=== PATIENT | male | born 1945 | race Caucasian/White ===

== ENCOUNTER 2016-04-13 19:44 | Observation (INO) | payer MEDICARE ==
[2016-04-13] MEDS ORDERED: ASPIRIN 81 MG CHEW PO STA (20:21)
[2016-04-13] MEDS ORDERED: NITROGLYCERIN OINT 1 INCH/GM PACKET TOPICAL STA (20:21)
[2016-04-13 20:31] LABS: Basophils # (A) 0.1 k/uL (0-0.2); Basophils % (A) 1 %; CHCM 33.4; Eosinophils # (A) 0.1 k/uL (0-0.7); Eosinophils % (A) 1 %; HCT 42.1 % (39.0-53.0); HDW 2.25; HGB 13.8 gm/dL (13.0-17.5); Luc # (Auto) 0.17; Luc % (Auto) 2; Lymphocytes # (A) 1.4 k/uL (1.0-4.8); Lymphocytes % (A) 14 %; MCH 31.6 pg (25.0-35.0); MCHC 32.9 g/dL (31.0-37.0); MCV 96.1 fL (80.0-100.0); Mean Platelet Volume 7.8; Monocytes # (A) 0.6 k/uL (0-1.0); Monocytes % (A) 6 %; Neutrophils # (A) 8.1 k/uL (1.3-7.7); Neutrophils % (A) 77 %; RBC 4.38 m/uL (4.30-5.90); WBC 10.5 k/uL (3.8-10.6); WBC (Perox) 10.41
[2016-04-13 20:39] LABS: INR 1.3 (<1.1); Partial Thromboplastin Time 23.1 sec (22.0-30.0); Prothrombin Time 12.8 sec (9.0-12.0)
[2016-04-13 20:44] LABS: ALT 62 U/L (21-72); AST 41 U/L (17-59); Alkaline Phosphatase 66 U/L (38-126); Anion Gap 14 mmol/L; Blood Urea Nitrogen 20 mg/dL (9-20); Calcium 9.3 mg/dL (8.4-10.2); Carbon Dioxide 27 mmol/L (22-30); Chloride 104 mmol/L (98-107); Glucose 113 mg/dL (74-99); Magnesium 1.4 mg/dL (1.6-2.3); Non-African American GFR(MDRD) >60 (>60 ml/min/1.73 sqM); Potassium 4.2 mmol/L (3.5-5.1); Sodium 145 mmol/L (137-145); Total Protein 6.7 g/dL (6.3-8.2)
[2016-04-13 20:52] LABS: Creatine Kinase 95 U/L (55-170)
--- NOTE | 2016-04-13 20:54 | XR ---
EXAMINATION TYPE: XR chest 2V DATE OF EXAM: 04/13/2016 8:50 PM COMPARISON: 07/24/2015 HISTORY: Chest pain TECHNIQUE: Frontal and lateral views of the chest are obtained. FINDINGS: There is no heart failure nor confluent pneumonic infiltrate. Heart size is normal. There are chest leads. Costophrenic angles are clear. There is spurring in the thoracic spine. IMPRESSION: No active cardiopulmonary disease. No change.
[2016-04-13 21:05] LABS: Creatine Kinase MB 0.8 ng/mL (0.0-2.4); Troponin I <0.012 ng/mL (0.000-0.034)
--- NOTE | 2016-04-13 21:12 | ED ---
General Adult HPI - General Chief complaint: Altered Mental Status Stated complaint: Chest Pain Time Seen by Provider: 04/13/16 20:12 Source: patient Mode of arrival: ambulatory Limitations: altered mental status - History of Present Illness Initial comments: This 70-year-old white male presents with with a complaint of some chest pain. This occurred at approximate 6:30 PM. It is difficult for him to describe the characteristics of it. It is primarily on the left side. He took 3 sublingual nitroglycerin with eventual relief. He denies any shortness of breath. He is felt fairly weak recently. He apparently had a slight headache at one time. His states that he seemed weak with his speaking. There is some question test confusion although he does have also worse dementia. He is a very poor historian most history is obtained per . His been no fevers chills or recent infections. She states that he has been off balance chronically. His last stress test was in July 2015 near heart catheterization in July 2015. He apparently does have areas of blockage but these are too small to be stented. His business analytics analyst is Dr. Matta. No other complaints or modifying factors. - Related Data Home Medications Medication Instructions Recorded Confirmed Cholecalciferol [Vitamin D3] 2,000 unit PO DAILY@169907/30/13 04/13/16 Citalopram Hydrobromide 40 mg PO DAILY@169907/30/13 04/13/16 [Citalopram HBr] Dipyridamole-Aspirin 200-25 mg 1 tab PO BID@0300,169907/30/13 04/13/16 [Aggrenox 25MG -200MG] Donepezil HCl 20 mg PO DAILY@169907/30/13 04/13/16 Isosorbide Mononitrate [Imdur] 30 mg PO DAILY@169907/30/13 04/13/16 Melatonin 3 - 6 mg PO HS 07/30/13 04/13/16 Memantine [Namenda] 10 mg PO BID@0300,169907/30/13 04/13/16 Metoprolol Tartrate [Lopressor] 25 mg PO PC-BID@0300,169907/30/13 04/13/16 Nitroglycerin Sl Tabs [Nitrostat] 0.4 mg SUBLINGUAL Q5M PRN 07/30/13 04/13/16 Tiotropium 18 Mcg/Puff [Spiriva] 2 puff INHALATION RT-BID 07/30/13 04/13/16 clonazePAM [KlonoPIN] 0.5 mg PO DAILY@1700 07/30/13 04/13/16 lamoTRIgine [LaMICtal] 50 mg PO BID 07/30/13 04/13/16 Primidone [Mysoline] 100 mg PO BID 04/07/14 04/13/16 Saxagliptin HCl [Onglyza] 5 mg PO DAILY@17004/07/14 04/13/16 metFORMIN HCL 1,000 mg PO BID 07/16/14 04/13/16 Atorvastatin [Lipitor] 80 mg PO DAILY@03003/11/15 04/13/16 Budesonide-Formot 160-4.5 Mcg 2 puff INHALATION RT-BID 03/11/15 04/13/16 [Symbicort 160-4.5 Mcg Inhaler] Cyanocobalamin [Vitamin B-12] 1,000 mcg PO DAILY@17003/11/15 04/13/16 traMADol HCl [Ultram] 50 mg PO Q6H PRN 03/11/15 04/13/16 Previous Rx's Medication Instructions Recorded EPINEPHrine [Epipen 2-Americo] 0.3 mg IM ONCE PRN #1 ml 04/08/14 Allergies Allergy/AdvReac Type Severity Reaction Status Date / Time acetaminophen [From Tylenol] Allergy Rash/Hives Verified 04/13/16 20:18 lisinopril Allergy Dyspnea Verified 04/13/16 20:18 lorazepam [From Ativan] AdvReac Hallucinati Verified 04/13/16 20:18 ons Review of Systems ROS Statement: Those systems with pertinent positive or pertinent negative responses have been documented in the HPI. ROS Other: All systems not noted in ROS Statement are negative. Past Medical History Past Medical History: COPD, Dementia, Diabetes Mellitus, Hypertension Additional Past Medical History / Comment(s): Other HX: MULTIPLE SCLEROSIS ( which has also affected the pt cognitively), Possible. alzheimers dementia, optic neuritis, sleep apnea, neuropathy, [place] bilaterally History of Any Multi-Drug Resistant Organisms: None Reported Past Surgical History: Cholecystectomy, Heart Catheterization Additional Past Surgical History / Comment(s): cataracts with lens implants bilaterally, left hand Trigger finger release, colonoscopies, Past Anesthesia/Blood Transfusion Reactions: No Reported Reaction Past Psychological History: Anxiety, Depression Additional Psychological History / Comment(s): Pt lives in a home with his and dog. Pt has a quadcane. Pt is unsteady on his feet and has had numerous falls. He has had 3 falls 2016 Pt's assists him with his ADL's. Pt is able to feed himself. Pt is [place] [employer] and has bilateral hearing aides but choses not to wear them. is able to drive. Pt has no outside medical agency coming into home. Smoking Status: Former smoker Past Alcohol Use History: None Reported Additional Past Alcohol Use History / Comment(s): Pt started smoking in 1964 and quit in 2000 Past Drug Use History: None Reported - Past Family History Father Family Medical History: CVA/TIA, Myocardial Infarction ([place]) Additional Family Medical History / Comment(s): Father in his late 70's. Mother Family Medical History: Dementia Additional Family Medical History / Comment(s): Mother alive but in poor health. She also has colitis. General Exam - General Exam Comments Initial Comments: GENERAL: The patient is well nourished and well hydrated. VITAL SIGNS: Heart rate, blood pressure, respiratory rate reviewed as recorded in nurse's notes. EYES: Pupils are round and reactive. Extraocular movements are intact. No conjunctival / lid redness or swelling. ENT: No external evidence of injury, swelling, or ecchymosis. Airway is patent. Throat is clear. NECK: Nontender. No swelling or evidence of injury. No subcutaneous emphysema. Trachea is midline. No thyroid mass. HEART: Regular rate and rhythm. Good peripheral pulses. LUNGS/CHEST: Breath sounds clear and equal bilaterally. No rales, rhonchi, or wheezes. No ecchymosis, subcutaneous emphysema, or tenderness. ABDOMEN: Abdomen soft without tenderness. No palpable masses or organomegaly. No peritoneal signs. No abdominal wall swelling or ecchymosis. EXTREMITIES: No extremity tenderness. Normal muscle tone and function. No thoracolumbar tenderness. NEUROLOGIC: Sensation is grossly intact. Cranial nerve exam reveals face is symmetrical, tongue is midline, speech is clear. SKIN: No abrasions or ecchymosis is noted. No induration or masses noted. PSYCHIATRIC: Alert and oriented. Appropriate behavior and judgment. Limitations: altered mental status Course Vital Signs 04/13/16 04/13/16 04/13/16 19:54 20:20 20:50 Temperature 98.1 F Pulse Rate 82 74 81 Respiratory 18 18 18 Rate Blood Pressure 105/60 146/80 122/64 O2 Sat by Pulse 98 98 96 Oximetry 04/13/16 21:20 Temperature Pulse Rate 78 Respiratory 16 Rate Blood Pressure 118/71 O2 Sat by Pulse 99 Oximetry Medical Decision Making - Medical Decision Making The patient was seen and examined. All diagnostics were reviewed. EKG shows a normal sinus rhythm at a rate of 86. No acute ST-T wave changes are identified. The UT interval is 156, QRS duration is 84, and QTC intervals 469. The patient had a chest x-ray which did not show any acute abnormalities. The computed tomography scan of the brain shows an old infarct as well as some normal pressure hydrocephalus which is unchanged from previous. The CK-MB is slightly elevated and the magnesium is slightly low. Overall, it is felt as though the patient would benefit from admission to the hospital for further Cardiologic workup. They are agreeable to this. He is doing well on recheck. The case is discussed with Dr. Hodge and he is agreeable to admission. - Lab Data Result diagrams: 04/13/16 20:20 04/13/16 20:20 Lab Results 04/13/16 04/13/16 04/13/16 Range/Units 20:20 20:20 20:20 WBC 10.5 (3.8-10.6) k/uL RBC 4.38 (4.30-5.90) m/uL Hgb 13.8 (13.0-17.5) gm/dL Hct 42.1 (39.0-53.0) % MCV 96.1 (80.0-100.0) fL MCH 31.6 (25.0-35.0) pg MCHC 32.9 (31.0-37.0) g/dL RDW 13.0 (11.5-15.5) % Plt Count 223 (150-450) k/uL Neutrophils % 77 % Lymphocytes % 14 % Monocytes % 6 % Eosinophils % 1 % Basophils % 1 % Neutrophils # 8.1 H (1.3-7.7) k/uL Lymphocytes # 1.4 (1.0-4.8) k/uL Monocytes # 0.6 (0-1.0) k/uL Eosinophils # 0.1 (0-0.7) k/uL Basophils # 0.1 (0-0.2) k/uL PT (9.0-12.0) sec INR (<1.1) APTT (22.0-30.0) sec Sodium 145 (137-145) mmol/L Potassium 4.2 (3.5-5.1) mmol/L Chloride 104 (98-107) mmol/L Carbon Dioxide 27 (22-30) mmol/L Anion Gap 14 mmol/L BUN 20 (9-20) mg/dL Creatinine 1.10 (0.66-1.25) mg/dL Est GFR (MDRD) Af Amer >60 (>60 ml/min/1.73 sqM) Est GFR (MDRD) Non-Af >60 (>60 ml/min/1.73 sqM) Glucose 113 H (74-99) mg/dL Calcium 9.3 (8.4-10.2) mg/dL Magnesium 1.4 L (1.6-2.3) mg/dL Total Bilirubin 1.0 (0.2-1.3) mg/dL AST 41 (17-59) U/L ALT 62 (21-72) U/L Alkaline Phosphatase 66 (38-126) U/L Total Creatine Kinase 95 (55-170) U/L CK-MB (CK-2) 0.8 (0.0-2.4) ng/mL CK-MB (CK-2) Rel Index 0.8 Troponin I <0.012 (0.000-0.034) ng/mL Total Protein 6.7 (6.3-8.2) g/dL Albumin 4.3 (3.5-5.0) g/dL 04/13/16 Range/Units 20:20 WBC (3.8-10.6) k/uL RBC (4.30-5.90) m/uL Hgb (13.0-17.5) gm/dL Hct (39.0-53.0) % MCV (80.0-100.0) fL MCH (25.0-35.0) pg MCHC (31.0-37.0) g/dL RDW (11.5-15.5) % Plt Count (150-450) k/uL Neutrophils % % Lymphocytes % % Monocytes % % Eosinophils % % Basophils % % Neutrophils # (1.3-7.7) k/uL Lymphocytes # (1.0-4.8) k/uL Monocytes # (0-1.0) k/uL Eosinophils # (0-0.7) k/uL Basophils # (0-0.2) k/uL PT 12.8 H (9.0-12.0) sec INR 1.3 (<1.1) APTT 23.1 (22.0-30.0) sec Sodium (137-145) mmol/L Potassium (3.5-5.1) mmol/L Chloride (98-107) mmol/L Carbon Dioxide (22-30) mmol/L Anion Gap mmol/L BUN (9-20) mg/dL Creatinine (0.66-1.25) mg/dL Est GFR (MDRD) Af Amer (>60 ml/min/1.73 sqM) Est GFR (MDRD) Non-Af (>60 ml/min/1.73 sqM) Glucose (74-99) mg/dL Calcium (8.4-10.2) mg/dL Magnesium (1.6-2.3) mg/dL Total Bilirubin (0.2-1.3) mg/dL AST (17-59) U/L ALT (21-72) U/L Alkaline Phosphatase (38-126) U/L Total Creatine Kinase (55-170) U/L CK-MB (CK-2) (0.0-2.4) ng/mL CK-MB (CK-2) Rel Index Troponin I (0.000-0.034) ng/mL Total Protein (6.3-8.2) g/dL Albumin (3.5-5.0) g/dL Disposition Clinical Impression: Chest pain, CAD (coronary artery disease), [place] coronary artery, Unstable angina, Dementia, Headache, Hypomagnesemia Disposition: ADMITTED IP TO THIS [facility] Condition: Fair Time of Disposition: 22:02 Decision Date: 04/13/16 Decision Time: 22:02
--- NOTE | 2016-04-13 21:24 | CT ---
EXAMINATION TYPE: CT brain wo con DATE OF EXAM: 04/13/2016 9:06 PM COMPARISON: 03/12/2015 HISTORY: Pt states of chest pain today. Headache CT DLP: 930.7 mGycm Automated exposure control for dose reduction was used. FINDINGS: Ventricles are slightly enlarged. There is cerebral cortical atrophy. There is no mass effect nor mid line shift. There is no sign of intracranial hemorrhage. Calvarium is intact. IMPRESSION: Cerebral atrophy and normal pressure type hydrocephalus. 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 No change compared to old exam. No acute abnormality.
[2016-04-13] MEDS ORDERED: HEPARIN SODIUM,PORCINE 5,000 UNIT/ML 1 ML VIAL IV PRN (22:04)
[2016-04-13] MEDS ORDERED: HEPARIN SODIUM,PORCINE 5,000 UNIT/ML 1 ML VIAL IV ONE (22:04)
[2016-04-13] MEDS ORDERED: traMADol 50 MG TAB PO PRN (22:07)
[2016-04-13] MEDS ORDERED: HEPARIN SODIUM,PORCINE/D5W PMX 25,000 UNIT in DEXTROSE/WATER 1 500ML.BAG IV SCH (22:15)
[2016-04-13 22:45] VITALS: RESP 18
[2016-04-13] MEDS: MAGNESIUM SULFATE-D5W PMX 1 GM in DEXTROSE/WATER 1 100ML.BAG IVPB SCH (23:38)
[2016-04-14] MEDS: MAGNESIUM SULFATE-D5W PMX 1 GM in DEXTROSE/WATER 1 100ML.BAG IVPB SCH (00:40)
[2016-04-14] MEDS: NITROGLYCERIN OINT 1 INCH/GM PACKET TOPICAL SCH ×2 (02:58→04:55)
[2016-04-14] MEDS: metFORMIN 500 MG TAB PO SCH ×2 (03:19→18:11)
[2016-04-14] MEDS: lamoTRIgine 25 MG TAB PO SCH ×2 (03:20→16:12)
[2016-04-14] MEDS: PRIMIDONE 50 MG TAB PO SCH (03:20)
[2016-04-14] MEDS: ATORVASTATIN 80 MG TAB PO SCH (03:20)
[2016-04-14] MEDS: METOPROLOL TARTRATE 25 MG TAB PO SCH ×2 (03:20→18:12)
[2016-04-14 04:07] LABS: Cholesterol 140 mg/dL (<200); HDL Cholesterol 65 mg/dL (40-60); Triglycerides 91 mg/dL (<150)
[2016-04-14 04:36] LABS: Creatine Kinase 106 U/L (55-170)
[2016-04-14 04:49] LABS: Troponin I <0.012 ng/mL (0.000-0.034)
[2016-04-14] MEDS: MELATONIN 3 MG TABLET PO SCH (04:55)
[2016-04-14] MEDS: DIPYRIDAMOLE-ASPIRIN 200-25 MG 1 EACH CPMP.12HR PO SCH ×2 (04:55→18:10)
[2016-04-14] MEDS: MEMANTINE 10 MG TAB PO SCH ×2 (04:55→18:11)
[2016-04-14] MEDS ORDERED: MORPHINE SULFATE 2 MG/ML SYRINGE IVP PRN (07:09)
[2016-04-14] MEDS: NITROGLYCERIN SL TABS 0.4 MG TAB SUBLINGUAL PRN ×2 (07:13→07:19)
[2016-04-14] MEDS ORDERED: MORPHINE SULFATE 2 MG/ML SYRINGE ONE (07:28)
[2016-04-14] MEDS ORDERED: metFORMIN 500 MG TAB PO SCH (07:30)
[2016-04-14] MEDS: TIOTROPIUM 18 MCG/PUFF INHALER INHALATION SCH ×2 (07:55→18:44)
[2016-04-14] MEDS: SYMBICORT 160-4.5 MCG INHALER INHALATION SCH ×2 (07:59→18:44)
--- NOTE | 2016-04-14 08:51 | P.CRDCN ---
History of Present Illness Consult date: 04/14/16 Chief complaint: Chest pain History of present illness: This is a pleasant 70-year-old gentleman who used to see Dr. Dr. Patricia in the past and currently he sees a kitchen food server out of the town with a past medical history significant for mild to moderate nonobstructive CAD, multiple sclerosis, mild cognitive disorder, was brought to the hospital by ambulance with a chest discomfort. The history was taken from his who states that the patient has been experiencing chest discomfort lately and yesterday he took 3 nitroglycerin without any improvement in the symptoms. The EKG showed sinus rhythm without significant ST or T-wave abnormalities. The cardiac enzymes came in to be unremarkable. The patient underwent heart catheterization at [facility] that was last year and I am in the process of obtaining a copy of it. The patient has been pain free since he was admitted to the hospital. Past Medical History Past Medical History: Chest Pain / Angina, COPD, Dementia, Diabetes Mellitus, Hypertension Additional Past Medical History / Comment(s): Other HX: MULTIPLE SCLEROSIS ( which has also affected the pt cognitively), Possible. alzheimers dementia, optic neuritis, sleep apnea, neuropathy, [place] bilaterally History of Any Multi-Drug Resistant Organisms: None Reported Past Surgical History: Cholecystectomy, Heart Catheterization Additional Past Surgical History / Comment(s): cataracts with lens implants bilaterally, left hand Trigger finger release, colonoscopies, tonsillectomy, stress tests Past Anesthesia/Blood Transfusion Reactions: No Reported Reaction Past Psychological History: Anxiety, Depression Additional Psychological History / Comment(s): Pt lives in a home with his and dog. Pt is unsteady on his feet and has had numerous falls. He has had 3 falls 2016 Pt's assists him with his ADL's. Pt is able to feed himself. Pt is [place] and has bilateral hearing aides but choses not to wear them. is able to drive. Pt has no outside medical agency coming into home. Smoking Status: Former smoker Past Alcohol Use History: None Reported Additional Past Alcohol Use History / Comment(s): Pt started smoking in 1964 and quit in 2000 Past Drug Use History: None Reported - Past Family History Father Family Medical History: CVA/TIA, Myocardial Infarction ([place]) Additional Family Medical History / Comment(s): Father in his late 70's. Mother Family Medical History: Dementia Additional Family Medical History / Comment(s): Mother alive but in poor health. She also has colitis. Medications and Allergies Home Medications Medication Instructions Recorded Confirmed Type Cholecalciferol [Vitamin D3] 2,000 unit PO DAILY@169907/30/13 04/13/16 History Citalopram Hydrobromide 40 mg PO DAILY@169907/30/13 04/13/16 History [Citalopram HBr] Dipyridamole-Aspirin 200-25 mg 1 tab PO BID@0300,169907/30/13 04/13/16 History [Aggrenox 25MG -200MG] Donepezil HCl 20 mg PO DAILY@169907/30/13 04/13/16 History Isosorbide Mononitrate [Imdur] 30 mg PO DAILY@169907/30/13 04/13/16 History Melatonin 3 - 6 mg PO HS 07/30/13 04/13/16 History Memantine [Namenda] 10 mg PO BID@030,169907/30/13 04/13/16 History Metoprolol Tartrate [Lopressor] 25 mg PO PC-BID@030,169907/30/13 04/13/16 History Nitroglycerin Sl Tabs [Nitrostat] 0.4 mg SUBLINGUAL Q5M PRN 07/30/13 04/13/16 History Tiotropium 18 Mcg/Puff [Spiriva] 2 puff INHALATION RT-BID 07/30/13 04/13/16 History clonazePAM [KlonoPIN] 0.5 mg PO DAILY@169907/30/13 04/13/16 History lamoTRIgine [LaMICtal] 50 mg PO BID 07/30/13 04/13/16 History Primidone [Mysoline] 100 mg PO BID 04/07/14 04/13/16 History Saxagliptin HCl [Onglyza] 5 mg PO DAILY@169904/07/14 04/13/16 History metFORMIN HCL 1,000 mg PO BID 07/16/14 04/13/16 History Atorvastatin [Lipitor] 80 mg PO DAILY@0300 03/11/15 04/13/16 History Budesonide-Formot 160-4.5 Mcg 2 puff INHALATION RT-BID 03/11/15 04/13/16 History [Symbicort 160-4.5 Mcg Inhaler] Cyanocobalamin [Vitamin B-12] 1,000 mcg PO DAILY@1700 03/11/15 04/13/16 History traMADol HCl [Ultram] 50 mg PO Q6H PRN 03/11/15 04/13/16 History Allergies Allergy/AdvReac Type Severity Reaction Status Date / Time acetaminophen [From Tylenol] Allergy Rash/Hives Verified 04/13/16 20:18 lisinopril Allergy Dyspnea Verified 04/13/16 20:18 lorazepam [From Ativan] AdvReac Hallucinati Verified 04/13/16 20:18 ons Physical Exam Vitals: Vital Signs Temp Pulse Pulse Resp BP BP Pulse Ox 04/14/16 07:19 73 18 116/63 94 L 04/14/16 07:12 73 18 118/64 94 L 04/14/16 04:00 97.5 F L 70 18 123/70 98 04/14/16 03:46 66 18 04/13/16 23:27 97.8 F 63 18 129/67 95 04/13/16 22:20 97.3 F L 69 18 124/69 98 Intake and Output 04/13/16 04/14/16 04/14/16 22:59 06:59 14:59 Intake Total 765.146 Output Total 300 Balance 465.146 Intake: IV 200 0.9@20 100 Heparin Sodium,Porcine/ 100 D5w Pmx 25,000 unit In Dextrose/Water 1 500ml. bag @ 11.8 UNITS/KG/HR 19 .91 mls/hr IV .Q24H [facility] Rx#:[id number] Intake, IV Titration 115.146 Amount Heparin Sodium,Porcine/ 115.146 D5w Pmx 25,000 unit In Dextrose/Water 1 500ml. bag @ 11.8 UNITS/KG/HR 19 .91 mls/hr IV .Q24H [facility] Rx#:[id number] Oral 450 Output: Urine 300 Other: Voiding Method Toilet Urinal Weight 80.6 kg - Constitutional General appearance: no acute distress - Respiratory Respiratory: bilateral: CTA - Cardiovascular Rhythm: regular Heart sounds: normal: S1, S2 Results 04/13/16 20:20 04/13/16 20:20 Cardiac Enzymes 04/14/16 Range/Units 03:34 CK-MB (CK-2) 1.0 (0.0-2.4) ng/mL Troponin I <0.012 (0.000-0.034) ng/mL Coagulation 04/14/16 Range/Units 03:34 APTT 77.2 H (22.0-30.0) sec Lipids 04/14/16 Range/Units 03:34 Triglycerides 91 (<150) mg/dL Cholesterol 140 (<200) mg/dL HDL Cholesterol 65 H (40-60) mg/dL Current Medications Generic Name Dose Route Start Last Admin Trade Name Freq PRN Reason Stop Dose Admin Aspirin 325 mg 04/14/16 09:00 Aspirin PO DAILY [facility] Atorvastatin Calcium 80 mg 04/14/16 03:00 04/14/16 03:20 Lipitor PO 80 mg DAILY@0300 [facility] Administration Budesonide/Formoterol Fumarate 2 puff 04/14/16 08:00 04/14/16 07:59 Symbicort 160-4.5 Mcg Inhaler INHALATION 2 puff RT-BID [facility] Administration Cholecalciferol 2,000 unit 04/14/16 17:00 Vitamin D3 PO DAILY@1700 [facility] Citalopram Hydrobromide 40 mg 04/14/16 17:00 Celexa PO DAILY@1700 [facility] Clonazepam 0.5 mg 04/14/16 17:00 Klonopin PO DAILY@1700 [facility] Cyanocobalamin 1,000 mcg 04/14/16 17:00 Vitamin B-12 PO DAILY@1700 [facility] Dipyridamole/Aspirin 1 each 04/14/16 03:00 04/14/16 04:55 Aggrenox PO 1 each BID@0300,1700 [facility] Administration Donepezil HCl 20 mg 04/14/16 17:00 Aricept PO DAILY@1700 [facility] Heparin Sodium (Porcine) 0 unit 04/13/16 22:04 Heparin IV Q6HR PRN Low PTT Protocol Heparin Sodium/Dextrose 25,000 500 mls @ 19.91 mls/hr 04/13/16 22:15 04:26 unit/ IV Solution IV 9.85 units/kg/hr .Q24H [facility] 16.62 mls/hr Protocol Titration 11.8 UNITS/KG/HR Lamotrigine 50 mg 04/14/16 03:00 04/14/16 03:20 Lamictal PO 50 mg BID [facility] Administration Linagliptin 5 mg 04/14/16 17:00 Tradjenta PO DAILY@1700 [facility] Melatonin 6 mg 04/14/16 03:35 04/14/16 04:55 Melatonin PO 6 mg HS [facility] Administration Memantine 10 mg 04/14/16 03:00 04/14/16 04:55 Namenda PO 10 mg BID@0300,1700 [facility] Administration Metformin HCl 1,000 mg 04/14/16 03:00 04/14/16 03:19 Glucophage PO 1,000 mg AC-BID [facility] Administration Metoprolol Tartrate 25 mg 04/14/16 03:00 04/14/16 03:20 Lopressor PO 25 mg PC-BID@0300,1700 [facility] Administration Morphine Sulfate 2 mg 04/14/16 07:09 04/14/16 07:30 Morphine Sulfate (Inj) IVP 2 mg ONCE PRN Administration Pain/Discomfort Nitroglycerin 1 inch 04/14/16 01:00 04/14/16 04:55 Nitro-Bid Oint TOPICAL 1 inch Q6HR [facility] Administration Nitroglycerin 0.4 mg 04/13/16 22:07 04/14/16 07:19 Nitrostat SUBLINGUAL 0.4 mg Q5M PRN Administration Chest Pain Primidone 100 mg 04/14/16 03:00 04/14/16 03:20 Mysoline PO 100 mg BID [facility] Administration Tiotropium [place] 1 puff 04/14/16 08:00 04/14/16 07:55 Spiriva INHALATION 1 puff RT-BID [facility] Administration Tramadol HCl 50 mg 04/13/16 22:07 Ultram PO Q6H PRN Pain Intake and Output 04/13/16 04/14/16 04/14/16 22:59 06:59 14:59 Intake Total 765.146 Output Total 300 Balance 465.146 Intake: IV 200 0.9@20 100 Heparin Sodium,Porcine/ 100 D5w Pmx 25,000 unit In Dextrose/Water 1 500ml. bag @ 11.8 UNITS/KG/HR 19 .91 mls/hr IV .Q24H [facility] Rx#:[id number] Intake, IV Titration 115.146 Amount Heparin Sodium,Porcine/ 115.146 D5w Pmx 25,000 unit In Dextrose/Water 1 500ml. bag @ 11.8 UNITS/KG/HR 19 .91 mls/hr IV .Q24H [facility] Rx#:[id number] Oral 450 Output: Urine 300 Other: Voiding Method Toilet Urinal Weight 80.6 kg Assessment and Plan Plan: Assessment #1 intermittent episodes of chest discomfort #2 known mild to moderate nonobstructive CAD #3 cognitive disorder Plan #1 I will obtain a copy of the heart catheterization from [facility] #2 increase the dose of Imdur to 60 mg by mouth daily #3 follow-up with the patient
[2016-04-14] MEDS ORDERED: PRIMIDONE 50 MG TAB PO SCH (09:00)
[2016-04-14] MEDS ORDERED: ISOSORBIDE MONONITRATE 20 MG TAB PO SCH (09:00)
[2016-04-14] MEDS ORDERED: lamoTRIgine 25 MG TAB PO SCH (09:00)
[2016-04-14 09:36] LABS: Creatine Kinase 107 U/L (55-170)
[2016-04-14 09:49] LABS: Creatine Kinase MB 0.8 ng/mL (0.0-2.4); Troponin I <0.012 ng/mL (0.000-0.034)
[2016-04-14 10:51] VITALS: BMI 28.6
--- NOTE | 2016-04-14 11:54 | ECHOF ---
Referral Reason:cp MEASUREMENTS -------- HEIGHT: 167.6 cm WEIGHT: 80.3 kg BP: 116/63 IVSd: 1.4 cm (0.6 - 1.1) LVIDd: 2.4 cm (3.9 - 5.3) LVPWd: 1.2 cm (0.6 - 1.1) IVSs: 1.7 cm LVIDs: 0.9 cm LVPWs: 1.6 cm Ao Diam: 3.0 cm (2.0 - 3.7) AV Cusp: 1.7 cm (1.5 - 2.6) LA Diam: 2.8 cm (2.7 - 3.8) MV EXCURSION: 14.577 mm (> 18.000) MV EF SLOPE: 74 mm/s (70 - 150) EPSS: 0.6 cm MV E Wesley: 0.72 m/s MV DecT: 259 ms MV A [place]: 0.66 m/s MV E/A Ratio: 1.09 RAP: 5.00 mmHg RVSP: 9.47 mmHg FINDINGS -------- Sinus rhythm. This was a technically good study. There is mild concentric left ventricular hypertrophy. Overall left ventricular systolic function is normal with, an EF between 55 - 60 %. The right ventricle is normal in size and function. The left atrium is normal in size. The right atrium is normal in size. Aortic valve is trileaflet and is mildly thickened. The mitral valve leaflets are mildly thickened. Mild mitral regurgitation is present. Trace tricuspid regurgitation present. The right ventricular systolic pressure, as measured by Doppler, is 9.47mmHg. Pulmonic valve appears structurally normal. The aortic root size is normal. The pericardium is normal. CONCLUSIONS -------- 1. Sinus rhythm. 2. Mild mitral regurgitation is present. 3. Trace tricuspid regurgitation present. 4. The right ventricular systolic pressure, as measured by Doppler, is 9.47mmHg. 5. Pulmonic valve appears structurally normal. 6. The aortic root size is normal. 7. The pericardium is normal. 8. This was a technically good study. 9. There is mild concentric left ventricular hypertrophy. 10. Overall left ventricular systolic function is normal with, an EF between 55 - 60 %. 11. The right ventricle is normal in size and function. 12. The left atrium is normal in size. 13. The right atrium is normal in size. 14. Aortic valve is trileaflet and is mildly thickened. 15. The mitral valve leaflets are mildly thickened. MEDICAL OFFICE MANAGER: Deepika Hamilton RDCS
[2016-04-14 12:34] LABS: Glucose,Whole Blood 135 mg/dL (75-99)
--- NOTE | 2016-04-14 13:21 | HP ---
DATE OF ADMISSION: 04/13/2016 PRESENTING COMPLAINT: Chest pain. HISTORY OF PRESENTING COMPLAINT: This a pleasant 70-year-old patient of Dr. Meyers whose chronic stable medical conditions include COPD, Alzheimer's dementia, diabetes mellitus type 2, hypertension, multiple sclerosis, sleep apnea, peripheral neuropathy secondary to multiple sclerosis, depression. Patient has had cardiac cath x3 in the past. Last one being about a few months ago at [facility]. He was told he has less than 70% lesion that is nonobstructive disease. The patient yesterday developed left-sided 2 hours of chest pain going to the back. There is no shortness of breath. Patient did feel weak. There is no perspiration; hence patient did get relief with nitroglycerin then had a second episode again relieved with nitroglycerin; hence admitted with unstable angina. The patient himself is a bit forgetful and gives more detailed history. REVIEW OF SYSTEMS: CONSTITUTIONAL: Tired. HEENT: Decreased hearing. RESPIRATORY: As above. CARDIOVASCULAR: As above. GASTROINTESTINAL: None. GENITOURINARY: None. MUSCULOSKELETAL: None. DERMATOLOGICAL: None. HEMATOLOGICAL: None. LYMPHATIC: None. PSYCHIATRY: Forgetful. NEUROLOGICAL: None. Past medical history of COPD, dementia, diabetes mellitus type 2, hypertension, multiple sclerosis, Alzheimer's dementia, optic neuritis, sleep apnea, peripheral neuropathy, hard of hearing, nonobstructive coronary artery disease per cardiac catheterization. PAST SURGICAL HISTORY: Cholecystectomy, cardiac cath with apparently stent placed in 2012, cataracts with lens implant bilaterally, left hand trigger finger. SOCIAL HISTORY: . Smoked from 1965 to 2000. Alcohol none. FAMILY HISTORY: Myocardial infarction and stroke. HOME MEDICATIONS: 1. Ultram 50 mg p.o. q.6 p.r.n. 2. Metformin 1000 mg p.o. b.i.d. 3. Lamictal 50 mg p.o. b.i.d. 4. Klonopin 0.5 p.o. daily at 5 p.m. 5. Spiriva 2 puffs b.i.d. 6. Onglyza 5 mg p.o. daily. 7. Mysoline 100 mg p.o. b.i.d. 8. Nitrostat 0.4 sublingual q.5 p.r.n. 9. Lopressor 25 mg p.o. b.i.d. 10. Namenda 10 mg p.o. b.i.d. 11. Melatonin 3 to 6 mg q.h.s. 12. Imdur 30 mg p.o. daily. 13. EpiPen p.r.n. 14. Aricept 20 mg p.o. daily at 5 p.m. 15. Aggrenox 1 tablet p.o. b.i.d. 16. Vitamin B12, 1000 mcg p.o. daily. 17. Celexa 40 mg p.o. daily. 18. Vitamin D3, 2000 units p.o. daily. 19. Symbicort 160/4.5 two puffs b.i.d. 20. Lipitor 80 mg p.o. daily. Allergic to ATIVAN, LISINOPRIL, TYLENOL. On examination, temperature 97.5, pulse 70, respiration 18, blood pressure 123/70, pulse ox 98% on room air. GENERAL APPEARANCE: Average built, sitting up in bed, not in distress. EYES: Pupils equal. Conjunctivae normal. HEENT: External appearance of nose and ears normal. Oral cavity normal. NECK: JVD not raised. Mass not palpable. RESPIRATORY: Effort normal. LUNGS: Clear. CARDIOVASCULAR: First and second sounds normal. No edema. ABDOMEN: Soft, nontender. Liver and spleen not palpable. LYMPHATIC: No lymph nodes palpable in neck or axillae. PSYCHIATRY: Patient is slow to answer questions and has to prompt him often times. NEUROLOGICAL: Pupils equal. Cranial nerves grossly intact. Power and sensation grossly intact. INVESTIGATIONS: White count 10.5, hemoglobin 13.8. Potassium 4.2. ASSESSMENT: 1. Possible unstable angina in a patient with known coronary artery disease. The last cardiac catheterization done a few months ago did not show any obstructive disease at [facility]. 2. Chronic obstructive pulmonary disease in an ex-smoker. 3. Alzheimer's dementia, late onset, no psychosis. 4. Diabetes mellitus type 2, oral hypoglycemic. 5. Essential hypertension. 6. Chronic multiple sclerosis. 7. Multiple sclerosis causing peripheral neuropathy. 8. Depression, not otherwise specified. PLAN: Patient is put on IV heparin. Home medications are resumed. Cardiology was consulted. Care was discussed with the at the bedside.
[2016-04-14] MEDS ORDERED: clonazePAM 0.5 MG TAB PO SCH (17:00)
[2016-04-14] MEDS ORDERED: CITALOPRAM HYDROBROMIDE 20 MG TAB PO SCH (17:00)
[2016-04-14] MEDS ORDERED: CYANOCOBALAMIN 500 MCG TAB PO SCH (17:00)
[2016-04-14] MEDS ORDERED: LINAGLIPTIN 5 MG TABLET PO SCH (17:00)
[2016-04-14] MEDS ORDERED: CHOLECALCIFEROL 1,000 UNIT TAB PO SCH (17:00)
[2016-04-14] MEDS ORDERED: ISOSORBIDE MONONITRATE ER 30 MG TAB.ER.24H PO SCH (17:00)
[2016-04-14] MEDS ORDERED: DONEPEZIL 10 MG TAB PO SCH (17:00)
[2016-04-14 17:18] LABS: Glucose,Whole Blood 105 mg/dL (75-99)
[2016-04-14] MEDS: ASPIRIN 325 MG TAB PO SCH (18:23)
[2016-04-14 20:09] LABS: Glucose,Whole Blood 122 mg/dL (75-99)
[2016-04-14] MEDS ORDERED: MELATONIN 3 MG TABLET PO SCH (21:00)
[2016-04-14] MEDS ORDERED: ISOSORBIDE MONONITRATE ER 30 MG TAB.ER.24H PO STA (21:53)
[2016-04-15] MEDS: metFORMIN 500 MG TAB PO SCH (03:25)
[2016-04-15] MEDS: ATORVASTATIN 80 MG TAB PO SCH (03:25)
[2016-04-15] MEDS: lamoTRIgine 25 MG TAB PO SCH ×2 (03:25→11:38)
[2016-04-15] MEDS: DIPYRIDAMOLE-ASPIRIN 200-25 MG 1 EACH CPMP.12HR PO SCH (03:26)
[2016-04-15] MEDS: MEMANTINE 10 MG TAB PO SCH (03:26)
[2016-04-15] MEDS: MELATONIN 3 MG TABLET PO SCH (03:26)
[2016-04-15] MEDS: PRIMIDONE 50 MG TAB PO SCH ×2 (03:26→11:38)
[2016-04-15] MEDS: METOPROLOL TARTRATE 25 MG TAB PO SCH (03:26)
[2016-04-15 07:00] LABS: Glucose,Whole Blood 109 mg/dL (75-99)
[2016-04-15] MEDS: SYMBICORT 160-4.5 MCG INHALER INHALATION SCH (08:21)
[2016-04-15] MEDS: TIOTROPIUM 18 MCG/PUFF INHALER INHALATION SCH (08:22)
[2016-04-15 08:23] VITALS: BP 107/51; PULSE 69; TEMP 97.9
--- NOTE | 2016-04-15 08:34 | P.PN ---
Subjective Principal diagnosis: Chest pain This is a pleasant 70-year-old gentleman who used to see Dr. Dr. Patricia in the past and currently he sees a import/export analyst out of the town with a past medical history significant for mild to moderate nonobstructive CAD, multiple sclerosis, mild cognitive disorder, was brought to the hospital by ambulance with a chest discomfort. The history was taken from his who states that the patient has been experiencing chest discomfort lately and yesterday he took 3 nitroglycerin without any improvement in the symptoms. The EKG showed sinus rhythm without significant ST or T-wave abnormalities. The cardiac enzymes came in to be unremarkable. The patient underwent heart catheterization at [facility] that was last year and I am in the process of obtaining a copy of it. The patient has been pain free since he was admitted to the hospital. I reviewed the heart catheterization and that showed intermediate disease involving the proximal left anterior descending artery From the cardiovascular standpoint of view, the patient can be discharged home. Objective - Vital Signs Vital signs: Vital Signs Temp 97.9 F 04/15/16 08:00 Pulse 69 04/15/16 08:00 Resp 18 04/15/16 08:00 BP 107/51 04/15/16 08:00 Pulse Ox 94 L 04/15/16 08:00 Intake & Output 04/14/16 04/15/16 04/15/16 18:59 06:59 18:59 Intake Total 500 Balance 500 Weight 80.6 kg Intake: Oral 500 Other: Voiding Method Toilet Toilet Urinal Urinal # Voids 3 3 - Constitutional General appearance: Present: no acute distress - Labs CBC & Chem 7: 04/13/16 20:20 04/13/16 20:20 Labs: Abnormal Lab Results - Last 24 Hours (Table) 04/14/16 04/14/16 04/14/16 Range/Units 08:58 12:27 17:16 APTT 59.1 H (22.0-30.0) sec POC Glucose (mg/dL) 135 H 105 H (75-99) mg/dL 04/14/16 04/15/16 Range/Units 20:06 06:56 APTT (22.0-30.0) sec POC Glucose (mg/dL) 122 H 109 H (75-99) mg/dL Assessment and Plan Plan: Assessment #1 intermittent episodes of chest discomfort #2 known mild to moderate nonobstructive CAD #3 cognitive disorder Plan #1 the last heart catheterization was reviewed. #2 continue the current medical treatment. #3 the patient can be discharged home.
[2016-04-15] MEDS: ASPIRIN 325 MG TAB PO SCH (11:38)
[2016-04-15] MEDS ORDERED: ISOSORBIDE MONONITRATE ER 60 MG TAB.ER.24H PO SCH (17:00)
--- NOTE | 2016-04-16 08:26 | DS ---
DATE OF ADMISSION: 04/13/2016 DATE OF DISCHARGE: 04/15/2016 FINAL DIAGNOSES: 1. Left anterior chest pain, could be unstable angina with known coronary artery disease. 2. Chronic obstructive pulmonary disease in an ex-smoker. 3. Alzheimer's dementia, late onset, with no psychosis. 4. Diabetes mellitus type 2 on oral hypoglycemic. 5. Essential hypertension. 6. Chronic multiple sclerosis. 7. Multiple sclerosis causing peripheral neuropathy. 8. Depression, not otherwise specified. HOSPITAL COURSE: This patient presented with chest pain. Last cardiac cath at [facility] showed a lesion less than 70%. PLAN: The patient has a prior history of stent. The patient tropes were negative. Seen by Dr. Abdalla from Cardiology, increased patient's nitrate. Patient is up and about in the hallway, no further chest pain. On exam, lungs are clear. CARDIOVASCULAR: First and second sounds normal. DISCHARGE MEDICATIONS: 1. Vitamin D3 two thousand units p.o. daily. 2. Celexa 40 mg p.o. daily. 3. Aggrenox 1 tablet p.o. b.i.d. 4. Aricept 20 mg p.o. daily. 5. Melatonin 36 mg p.o. q.h.s. 6. Namenda 10 mg p.o. b.i.d. 7. Lopressor 25 mg p.o. b.i.d. 8. Nitrostat 0.4 sublingual q.5 p.r.n. 9. Spiriva 2 puffs b.i.d. 10. Klonopin 0.5 p.o. daily. 11. Lamictal 50 mg p.o. b.i.d. 12. Mysoline 100 mg p.o. b.i.d. 13. Onglyza 5 mg p.o. daily. 14. EpiPen p.r.n. 15. Metformin 1000 mg p.o. b.i.d. 16. Lipitor 80 mg p.o. daily. 17. Symbicort 160/4.5 two puffs b.i.d. 18. Vitamin B12 one thousand mcg p.o. daily. 19. Ultram 50 mg q.6 p.r.n. 20. Hydrocortisone 1% topical cream b.i.d. p.r.n. 21. Flagyl topical b.i.d. p.r.n. 22. Aspirin 81 mg a day. 23. Imdur ER 60 mg a day. Follow up with his tour conductor in 1 week; follow up with Dr. Meyers in 3 days. Care was discussed in detail with the patient and at the bedside. Questions were answered. Discharge planning more than 35 minutes.
== END 2016-04-15 11:35 | disposition home or self-care (01) ==
LOC: EC 19:44 → 3OBS 22:04
PROVIDERS: ADMIT Hospitalist; ATTEND Hospitalist
DX: R07.89 Other chest pain (principal); J44.9 Chronic obstructive pulmonary disease, unspecified; G30.9 Alzheimer's disease, unspecified; F02.80 Dementia in other diseases classified elsewhere, unspecified severity, without behavioral disturbance, psychotic disturbance, mood disturbance, and anxiety; G35 Multiple sclerosis; E08.42 Diabetes mellitus due to underlying condition with diabetic polyneuropathy; I10 Essential (primary) hypertension; F32.9 Major depressive disorder, single episode, unspecified; R51 Headache; I25.10 Atherosclerotic heart disease of native coronary artery without angina pectoris; F09 Unspecified mental disorder due to known physiological condition; R41.82 Altered mental status, unspecified; G91.2 (Idiopathic) normal pressure hydrocephalus; E83.42 Hypomagnesemia; G47.30 Sleep apnea, unspecified; H46.9 Unspecified optic neuritis; H91.93 Unspecified hearing loss, bilateral; F41.9 Anxiety disorder, unspecified; Z91.81 History of falling; Z95.5 Presence of coronary angioplasty implant and graft; Z79.899 Other long term (current) drug therapy; Z79.82 Long term (current) use of aspirin; Z79.84 Long term (current) use of oral hypoglycemic drugs; Z79.51 Long term (current) use of inhaled steroids; Z88.6 Allergy status to analgesic agent; Z88.8 Allergy status to other drugs, medicaments and biological substances; Z96.1 Presence of intraocular lens; Z87.891 Personal history of nicotine dependence; Z82.49 Family history of ischemic heart disease and other diseases of the circulatory system
CPT/HCPCS: 36415; 94640 ×4; 93005; 93306; 80061; 80053; 82550 ×2; 82553 ×2; 83735; 84484 ×2; 85025; 85610; 85730 ×2; 71020; 70450; 99285; 96376; G0378 ×3; J1644 ×2; J2270; J3475 ×2; 96365; 96366; 96368; 96375

== ENCOUNTER 2016-04-16 08:06 | Observation (INO) | payer MEDICARE ==
[2016-04-16 08:52] LABS: Basophils # (A) 0.1 k/uL (0-0.2); Basophils % (A) 1 %; CH 32.3; CHCM 32.9; Eosinophils # (A) 0.2 k/uL (0-0.7); Eosinophils % (A) 2 %; HCT 40.5 % (39.0-53.0); Luc # (Auto) 0.15; Luc % (Auto) 2; Lymphocytes # (A) 1.8 k/uL (1.0-4.8); Lymphocytes % (A) 19 %; MCH 31.5 pg (25.0-35.0); MCV 98.4 fL (80.0-100.0); Mean Platelet Volume 8.1; Monocytes # (A) 0.5 k/uL (0-1.0); Monocytes % (A) 6 %; Neutrophils # (A) 6.8 k/uL (1.3-7.7); Neutrophils % (A) 71 %; RBC 4.11 m/uL (4.30-5.90); RDW 13.1 % (11.5-15.5); WBC 9.6 k/uL (3.8-10.6); WBC (Perox) 10.14
--- NOTE | 2016-04-16 08:57 | ED ---
General Adult HPI - General Chief complaint: Chest Pain Stated complaint: CHEST PAIN, HAS HEART HX Time Seen by Provider: 04/16/16 08:12 Source: patient, family, RN notes reviewed, old records reviewed Mode of arrival: wheelchair Limitations: no limitations - History of Present Illness Initial comments: This is a 70-year-old male the ER for evaluation.Patient presents here for evaluation of chest pain. Patient is a poor historian and most of history obtained from . Patient does have history of CAD with known 60% blockage and some artery of his heart. Patient does have recent hospital admission for chest pain and was just discharged home yesterday. Patient states just him again this morning when he woke up again patient for states his anterior chest radiating downward, did improve with Ultram he did take a nitro with no help. At this time is chest pain-free with no shortness of breath or diaphoresis - Related Data Home Medications Medication Instructions Recorded Confirmed Cholecalciferol [Vitamin D3] 2,000 unit PO DAILY@169907/30/13 04/16/16 Citalopram Hydrobromide 40 mg PO DAILY@169907/30/13 04/16/16 [Citalopram HBr] Dipyridamole-Aspirin 200-25 mg 1 tab PO BID@030,169907/30/13 04/16/16 [Aggrenox 25MG -200MG] Donepezil HCl 20 mg PO DAILY@169907/30/13 04/16/16 Melatonin 3 - 6 mg PO HS 07/30/13 04/16/16 Memantine [Namenda] 10 mg PO BID@030,169907/30/13 04/16/16 Metoprolol Tartrate [Lopressor] 25 mg PO PC-BID@030,169907/30/13 04/16/16 Nitroglycerin Sl Tabs [Nitrostat] 0.4 mg SUBLINGUAL Q5M PRN 07/30/13 04/16/16 Tiotropium 18 Mcg/Puff [Spiriva] 2 puff INHALATION RT-BID 07/30/13 04/16/16 clonazePAM [KlonoPIN] 0.5 mg PO DAILY@169907/30/13 04/16/16 lamoTRIgine [LaMICtal] 50 mg PO BID 07/30/13 04/16/16 Primidone [Mysoline] 100 mg PO BID 04/07/14 04/16/16 Saxagliptin HCl [Onglyza] 5 mg PO DAILY@1700 04/07/14 04/16/16 metFORMIN HCL 1,000 mg PO BID 07/16/14 04/16/16 Atorvastatin [Lipitor] 80 mg PO DAILY@0300 03/11/15 04/16/16 Budesonide-Formot 160-4.5 Mcg 2 puff INHALATION RT-BID 03/11/15 04/16/16 [Symbicort 160-4.5 Mcg Inhaler] Cyanocobalamin [Vitamin B-12] 1,000 mcg PO DAILY@1700 03/11/15 04/16/16 traMADol HCl [Ultram] 50 mg PO Q6H PRN 03/11/15 04/16/16 Hydrocortisone Cream 1 applic TOPICAL BID PRN 04/14/16 04/16/16 [Hydrocortisone 1% Cream] metroNIDAZOLE 0.75% CREAM 1 applic TOPICAL BID PRN 04/14/16 04/16/16 Previous Rx's Medication Instructions Recorded EPINEPHrine [Epipen 2-Americo] 0.3 mg IM ONCE PRN #1 ml 04/08/14 Aspirin 81 mg PO DAILY #1 chewable 04/15/16 Isosorbide Mononitrate ER [Imdur] 60 mg PO DAILY@1700 #30 tab.er.24h 04/15/16 Allergies Allergy/AdvReac Type Severity Reaction Status Date / Time acetaminophen [From Tylenol] Allergy Rash/Hives Verified 04/16/16 08:18 lisinopril Allergy Dyspnea Verified 04/16/16 08:18 lorazepam [From Ativan] AdvReac Hallucinati Verified 04/16/16 08:18 ons Review of Systems ROS Statement: Those systems with pertinent positive or pertinent negative responses have been documented in the HPI. ROS Other: All systems not noted in ROS Statement are negative. Past Medical History Past Medical History: Chest Pain / Angina, COPD, Dementia, Diabetes Mellitus, Hypertension Additional Past Medical History / Comment(s): Other HX: MULTIPLE SCLEROSIS ( which has also affected the pt cognitively), Possible. alzheimers dementia, optic neuritis, sleep apnea, neuropathy, [place] bilaterally History of Any Multi-Drug Resistant Organisms: None Reported Past Surgical History: Cholecystectomy, Heart Catheterization Additional Past Surgical History / Comment(s): cataracts with lens implants bilaterally, left hand Trigger finger release, colonoscopies, tonsillectomy, stress tests Past Anesthesia/Blood Transfusion Reactions: No Reported Reaction Past Psychological History: Anxiety, Depression Additional Psychological History / Comment(s): Pt lives in a home with his and dog. Pt is unsteady on his feet and has had numerous falls. He has had 3 falls 2016 Pt's assists him with his ADL's. Pt is able to feed himself. Pt is [place] and has bilateral hearing aides but choses not to wear them. is able to drive. Pt has no outside medical agency coming into home. Smoking Status: Former smoker Past Alcohol Use History: None Reported Additional Past Alcohol Use History / Comment(s): Pt started smoking in 1964 and quit in 2000 Past Drug Use History: None Reported - Past Family History Father Family Medical History: CVA/TIA, Myocardial Infarction ([place]) Additional Family Medical History / Comment(s): Father in his late 70's. Mother Family Medical History: Dementia Additional Family Medical History / Comment(s): Mother alive but in poor health. She also has colitis. General Exam Limitations: no limitations General appearance: alert, in no apparent distress Head exam: Present: atraumatic, normocephalic, normal inspection Eye exam: Present: normal appearance, PERRL, EOMI. Absent: scleral icterus, conjunctival injection, periorbital swelling ENT exam: Present: normal exam, mucous membranes moist Neck exam: Present: normal inspection. Absent: tenderness, meningismus, lymphadenopathy Respiratory exam: Present: normal lung sounds bilaterally. Absent: respiratory distress, wheezes, rales, rhonchi, stridor Cardiovascular Exam: Present: regular rate, normal rhythm, normal heart sounds. Absent: systolic murmur, diastolic murmur, rubs, gallop, clicks GI/Abdominal exam: Present: soft, normal bowel sounds. Absent: distended, tenderness, guarding, rebound, rigid Extremities exam: Present: normal inspection, full ROM, normal capillary refill. Absent: tenderness, pedal edema, joint swelling, calf tenderness Back exam: Present: normal inspection Neurological exam: Present: alert, oriented X3, CN II-XII intact Psychiatric exam: Present: normal affect, normal mood Skin exam: Present: warm, dry, intact, normal color. Absent: rash Course Vital Signs 04/16/16 04/16/16 04/16/16 08:13 09:05 10:32 Temperature 97.5 F L Pulse Rate 70 66 56 L Respiratory 18 18 18 Rate Blood Pressure 133/70 133/60 144/80 O2 Sat by Pulse 97 98 98 Oximetry - Reevaluation(s) Reevaluation #1: 04/16/16 10:45 Patient is without chest pain, remains in emergency room, patient seen and evaluated with Dr. Abdalla, Dr. Abdalla will take patient to Structural Steel Worker EKG Findings - EKG Comments: EKG Findings:: EKG shows normal sinus rhythm rate 61, KS 160, QRS 64, QTC 406 Medical Decision Making - Medical Decision Making 70 male ER for evaluation of chest pain, typical chest pain. Does have history of CAD, possible probable acute coronary syndrome. Patient will be admitted to the labour market economist for heart catheterization. - Lab Data Result diagrams: 04/16/16 08:30 04/16/16 08:30 Lab Results 04/16/16 04/16/16 04/16/16 Range/Units 08:30 08:30 08:30 WBC 9.6 (3.8-10.6) k/uL RBC 4.11 L (4.30-5.90) m/uL Hgb 13.0 (13.0-17.5) gm/dL Hct 40.5 (39.0-53.0) % MCV 98.4 (80.0-100.0) fL MCH 31.5 (25.0-35.0) pg MCHC 32.0 (31.0-37.0) g/dL RDW 13.1 (11.5-15.5) % Plt Count 204 (150-450) k/uL Neutrophils % 71 % Lymphocytes % 19 % Monocytes % 6 % Eosinophils % 2 % Basophils % 1 % Neutrophils # 6.8 (1.3-7.7) k/uL Lymphocytes # 1.8 (1.0-4.8) k/uL Monocytes # 0.5 (0-1.0) k/uL Eosinophils # 0.2 (0-0.7) k/uL Basophils # 0.1 (0-0.2) k/uL PT (9.0-12.0) sec INR (<1.1) APTT (22.0-30.0) sec Sodium 145 (137-145) mmol/L Potassium 3.9 (3.5-5.1) mmol/L Chloride 105 (98-107) mmol/L Carbon Dioxide 29 (22-30) mmol/L Anion Gap 11 mmol/L BUN 15 (9-20) mg/dL Creatinine 0.87 (0.66-1.25) mg/dL Est GFR (MDRD) Af Amer >60 (>60 ml/min/1.73 sqM) Est GFR (MDRD) Non-Af >60 (>60 ml/min/1.73 sqM) Glucose 100 H (74-99) mg/dL Calcium 9.4 (8.4-10.2) mg/dL Magnesium 1.3 L (1.6-2.3) mg/dL Total Bilirubin 0.5 (0.2-1.3) mg/dL AST 35 (17-59) U/L ALT 58 (21-72) U/L Alkaline Phosphatase 75 (38-126) U/L Total Creatine Kinase 121 (55-170) U/L CK-MB (CK-2) 1.1 (0.0-2.4) ng/mL CK-MB (CK-2) Rel Index 0.9 Troponin I <0.012 (0.000-0.034) ng/mL NT-Pro-B Natriuret Pep pg/mL Total Protein 6.6 (6.3-8.2) g/dL Albumin 4.2 (3.5-5.0) g/dL Lipase 154 (23-300) U/L 04/16/16 04/16/16 Range/Units 08:30 08:30 WBC (3.8-10.6) k/uL RBC (4.30-5.90) m/uL Hgb (13.0-17.5) gm/dL Hct (39.0-53.0) % MCV (80.0-100.0) fL MCH (25.0-35.0) pg MCHC (31.0-37.0) g/dL RDW (11.5-15.5) % Plt Count (150-450) k/uL Neutrophils % % Lymphocytes % % Monocytes % % Eosinophils % % Basophils % % Neutrophils # (1.3-7.7) k/uL Lymphocytes # (1.0-4.8) k/uL Monocytes # (0-1.0) k/uL Eosinophils # (0-0.7) k/uL Basophils # (0-0.2) k/uL PT 12.2 H (9.0-12.0) sec INR 1.2 (<1.1) APTT 24.1 (22.0-30.0) sec Sodium (137-145) mmol/L Potassium (3.5-5.1) mmol/L Chloride (98-107) mmol/L Carbon Dioxide (22-30) mmol/L Anion Gap mmol/L BUN (9-20) mg/dL Creatinine (0.66-1.25) mg/dL Est GFR (MDRD) Af Amer (>60 ml/min/1.73 sqM) Est GFR (MDRD) Non-Af (>60 ml/min/1.73 sqM) Glucose (74-99) mg/dL Calcium (8.4-10.2) mg/dL Magnesium (1.6-2.3) mg/dL Total Bilirubin (0.2-1.3) mg/dL AST (17-59) U/L ALT (21-72) U/L Alkaline Phosphatase (38-126) U/L Total Creatine Kinase (55-170) U/L CK-MB (CK-2) (0.0-2.4) ng/mL CK-MB (CK-2) Rel Index Troponin I (0.000-0.034) ng/mL NT-Pro-B Natriuret Pep 177 pg/mL Total Protein (6.3-8.2) g/dL Albumin (3.5-5.0) g/dL Lipase (23-300) U/L - Radiology Data Radiology results: report reviewed (Chest x-ray two-view is negative for acute disease), image reviewed Critical Care Time Critical Care Time: Yes Total Critical Care Time: 31 Disposition Clinical Impression: CAD (coronary artery disease), [place] coronary artery, Chest pain Disposition: ADMITTED IP TO THIS [facility] Condition: Fair Referrals: Suresh Meyers MD [Primary Care Provider] - 1-2 days
--- NOTE | 2016-04-16 09:01 | XR ---
EXAMINATION TYPE: XR chest 2V DATE OF EXAM: 04/16/2016 8:56 AM COMPARISON: Prior chest x-ray 13 April 2016 HISTORY: Chest pain TECHNIQUE: Frontal and lateral views of the chest are obtained. FINDINGS: There are overlying cardiac leads. Surgical clips are present in the right upper quadrant. Cardiomediastinal silhouette, pulmonary vascularity and miller are stable. No pneumonia, pneumothorax, or pleural effusion. Suspect a spinal curvature. IMPRESSION: No acute cardiopulmonary process.
[2016-04-16 09:05] LABS: ALT 58 U/L (21-72); AST 35 U/L (17-59); Alkaline Phosphatase 75 U/L (38-126); Anion Gap 11 mmol/L; Blood Urea Nitrogen 15 mg/dL (9-20); Calcium 9.4 mg/dL (8.4-10.2); Carbon Dioxide 29 mmol/L (22-30); Chloride 105 mmol/L (98-107); Glucose 100 mg/dL (74-99); Magnesium 1.3 mg/dL (1.6-2.3); Non-African American GFR(MDRD) >60 (>60 ml/min/1.73 sqM); Potassium 3.9 mmol/L (3.5-5.1); Sodium 145 mmol/L (137-145); Total Bilirubin 0.5 mg/dL (0.2-1.3); Total Protein 6.6 g/dL (6.3-8.2)
[2016-04-16 09:07] LABS: INR 1.2 (<1.1); Partial Thromboplastin Time 24.1 sec (22.0-30.0); Prothrombin Time 12.2 sec (9.0-12.0)
[2016-04-16 09:30] LABS: Creatine Kinase 121 U/L (55-170)
[2016-04-16 09:43] LABS: Creatine Kinase MB 1.1 ng/mL (0.0-2.4); Troponin I <0.012 ng/mL (0.000-0.034)
[2016-04-16] MEDS ORDERED: MAGNESIUM OXIDE 400 MG TAB PO STA (09:43)
[2016-04-16] MEDS ORDERED: HEPARIN SODIUM,PORCINE 5,000 UNIT/ML 1 ML VIAL IV ONE (10:43)
[2016-04-16] MEDS ORDERED: NITROGLYCERIN SL TABS 0.4 MG TAB SUBLINGUAL PRN (10:43)
[2016-04-16] MEDS ORDERED: HEPARIN SODIUM,PORCINE 5,000 UNIT/ML 1 ML VIAL IV PRN (10:43)
[2016-04-16] MEDS ORDERED: HEPARIN SODIUM,PORCINE/D5W PMX 25,000 UNIT in DEXTROSE/WATER 1 500ML.BAG IV SCH (10:45)
--- NOTE | 2016-04-16 10:49 | P.CRDCN ---
History of Present Illness Consult date: 04/16/16 Chief complaint: Chest pain History of present illness: This is a pleasant 70-year-old gentleman with a past medical history significant for coronary artery disease, hypertension, dyslipidemia, and mild cognitive disorder, presented to the hospital again complaining of chest discomfort. He was admitted to the hospital over the weekend with atypical chest discomfort. He was ruled out for acute coronary event. Maximize medical treatment was recommended at that point and the patient was discharged home on oral nitrate. He presented back to the hospital complaining of chest discomfort where he had 2 episodes one last night and one this morning. The cardiac enzymes came in to be unremarkable. The EKG showed sinus rhythm without any significant ST or T-wave abnormalities. In July 2015, the patient underwent a heart catheterization at the [facility] that showed intermediate lesion involving the mid left anterior descending artery. And medical treatment was recommended at that point. I am recommending proceeding with a heart catheterization. Past Medical History Past Medical History: Chest Pain / Angina, COPD, Dementia, Diabetes Mellitus, Hypertension Additional Past Medical History / Comment(s): Other HX: MULTIPLE SCLEROSIS ( which has also affected the pt cognitively), Possible. alzheimers dementia, optic neuritis, sleep apnea, neuropathy, AFOGNAK bilaterally History of Any Multi-Drug Resistant Organisms: None Reported Past Surgical History: Cholecystectomy, Heart Catheterization Additional Past Surgical History / Comment(s): cataracts with lens implants bilaterally, left hand Trigger finger release, colonoscopies, tonsillectomy, stress tests Past Anesthesia/Blood Transfusion Reactions: No Reported Reaction Past Psychological History: Anxiety, Depression Additional Psychological History / Comment(s): Pt lives in a home with his and dog. Pt is unsteady on his feet and has had numerous falls. He has had 3 falls 2016 Pt's assists him with his ADL's. Pt is able to feed himself. Pt is AFOGNAK and has bilateral hearing aides but choses not to wear them. is able to drive. Pt has no outside medical agency coming into home. Smoking Status: Former smoker Past Alcohol Use History: None Reported Additional Past Alcohol Use History / Comment(s): Pt started smoking in 1964 and quit in 2000 Past Drug Use History: None Reported - Past Family History Father Family Medical History: CVA/TIA, Myocardial Infarction ([place]) Additional Family Medical History / Comment(s): Father in his late 70's. Mother Family Medical History: Dementia Additional Family Medical History / Comment(s): Mother alive but in poor health. She also has colitis. Medications and Allergies Home Medications Medication Instructions Recorded Confirmed Type Cholecalciferol [Vitamin D3] 2,000 unit PO DAILY@169907/30/13 04/16/16 History Citalopram Hydrobromide 40 mg PO DAILY@169907/30/13 04/16/16 History [Citalopram HBr] Dipyridamole-Aspirin 200-25 mg 1 tab PO BID@0300,169907/30/13 04/16/16 History [Aggrenox 25MG -200MG] Donepezil HCl 20 mg PO DAILY@169907/30/13 04/16/16 History Melatonin 3 - 6 mg PO HS 07/30/13 04/16/16 History Memantine [Namenda] 10 mg PO BID@0300,169907/30/13 04/16/16 History Metoprolol Tartrate [Lopressor] 25 mg PO PC-BID@030,169907/30/13 04/16/16 History Nitroglycerin Sl Tabs [Nitrostat] 0.4 mg SUBLINGUAL Q5M PRN 07/30/13 04/16/16 History Tiotropium 18 Mcg/Puff [Spiriva] 2 puff INHALATION RT-BID 07/30/13 04/16/16 History clonazePAM [KlonoPIN] 0.5 mg PO DAILY@169907/30/13 04/16/16 History lamoTRIgine [LaMICtal] 50 mg PO BID 07/30/13 04/16/16 History Primidone [Mysoline] 100 mg PO BID 04/07/14 04/16/16 History Saxagliptin HCl [Onglyza] 5 mg PO DAILY@169904/07/14 04/16/16 History metFORMIN HCL 1,000 mg PO BID 07/16/14 04/16/16 History Atorvastatin [Lipitor] 80 mg PO DAILY@0300 03/11/15 04/16/16 History Budesonide-Formot 160-4.5 Mcg 2 puff INHALATION RT-BID 03/11/15 04/16/16 History [Symbicort 160-4.5 Mcg Inhaler] Cyanocobalamin [Vitamin B-12] 1,000 mcg PO DAILY@1700 03/11/15 04/16/16 History traMADol HCl [Ultram] 50 mg PO Q6H PRN 03/11/15 04/16/16 History Hydrocortisone Cream 1 applic TOPICAL BID PRN 04/14/16 04/16/16 History [Hydrocortisone 1% Cream] metroNIDAZOLE 0.75% CREAM 1 applic TOPICAL BID PRN 04/14/16 04/16/16 History Allergies Allergy/AdvReac Type Severity Reaction Status Date / Time acetaminophen [From Tylenol] Allergy Rash/Hives Verified 04/16/16 08:18 lisinopril Allergy Dyspnea Verified 04/16/16 08:18 lorazepam [From Ativan] AdvReac Hallucinati Verified 04/16/16 08:18 ons Physical Exam Vitals: Vital Signs Temp Pulse Resp BP Pulse Ox 04/16/16 10:32 56 L 18 144/80 98 04/16/16 09:05 66 18 133/60 98 04/16/16 08:13 97.5 F L 70 18 133/70 97 Intake and Output 04/15/16 04/16/16 04/16/16 22:59 06:59 14:59 Other: Weight 80.286 kg Patient Weight 04/17/16 06:59 Weight 80.286 kg - Constitutional General appearance: no acute distress - Respiratory Respiratory: bilateral: CTA - Cardiovascular Rhythm: regular Heart sounds: normal: S1, S2 Results 04/16/16 08:30 04/16/16 08:30 Cardiac Enzymes 04/16/16 04/16/16 Range/Units 08:30 08:30 AST 35 (17-59) U/L CK-MB (CK-2) 1.1 (0.0-2.4) ng/mL Troponin I <0.012 (0.000-0.034) ng/mL Coagulation 04/16/16 Range/Units 08:30 PT 12.2 H (9.0-12.0) sec APTT 24.1 (22.0-30.0) sec CBC 04/16/16 Range/Units 08:30 WBC 9.6 (3.8-10.6) k/uL RBC 4.11 L (4.30-5.90) m/uL Hgb 13.0 (13.0-17.5) gm/dL Hct 40.5 (39.0-53.0) % Plt Count 204 (150-450) k/uL Comprehensive Metabolic Panel 04/16/16 Range/Units 08:30 Sodium 145 (137-145) mmol/L Potassium 3.9 (3.5-5.1) mmol/L Chloride 105 (98-107) mmol/L Carbon Dioxide 29 (22-30) mmol/L BUN 15 (9-20) mg/dL Creatinine 0.87 (0.66-1.25) mg/dL Glucose 100 H (74-99) mg/dL Calcium 9.4 (8.4-10.2) mg/dL AST 35 (17-59) U/L ALT 58 (21-72) U/L Alkaline Phosphatase 75 (38-126) U/L Total Protein 6.6 (6.3-8.2) g/dL Albumin 4.2 (3.5-5.0) g/dL Current Medications Generic Name Dose Route Start Last Admin Trade Name Fernandoq PRN Reason Stop Dose Admin Aspirin 325 mg 04/17/16 09:00 Aspirin PO DAILY [facility] Heparin Sodium (Porcine) 0 unit 04/16/16 10:43 Heparin IV PER PROTOCOL PRN Low PTT Protocol Heparin Sodium/Dextrose 25,000 500 mls @ 19.26 mls/hr 04/16/16 10:45 unit/ IV Solution IV .Q24H [facility] Protocol 12 UNITS/KG/HR Nitroglycerin 0.4 mg 04/16/16 10:43 Nitrostat SUBLINGUAL Q5M PRN Chest Pain Intake and Output 04/15/16 04/16/16 04/16/16 22:59 06:59 14:59 Other: Weight 80.286 kg Patient Weight 04/17/16 06:59 Weight 80.286 kg 04/16/16 08:30 04/16/16 08:30 Assessment and Plan Plan: Assessment #1 recurrent chest discomfort #2 known at least intermediate CAD #3 multiple comorbid conditions new Plan #1 proceeding with heart catheterization #2 continue following up with the patient
[2016-04-16] MEDS ORDERED: SODIUM CHLORIDE 0.9% 1,000 ML in EMPTY BAG 1 BAG IV ONE (11:58)
[2016-04-16] MEDS ORDERED: ASPIRIN 325 MG TAB PO STA (11:58)
[2016-04-16] MEDS ORDERED: ATORVASTATIN 80 MG TAB PO STA (11:58)
[2016-04-16] MEDS ORDERED: ALPRAZolam 0.25 MG TAB PO PRN (11:58)
[2016-04-16] MEDS ORDERED: diphenhydrAMINE 50 MG/ML 1 ML VIAL ONE (12:14)
[2016-04-16] MEDS ORDERED: MIDAZOLAM 2 MG/2 ML VIAL ONE (12:14)
[2016-04-16] MEDS ORDERED: LIDOCAINE 2% INJ 20 MG/ML (20 ML MDV) ONE (12:14)
[2016-04-16] MEDS ORDERED: IV FLUID CONTINUATION 1,000 ML IV ONE (12:30)
[2016-04-16] MEDS ORDERED: fentaNYL (PF) 50 MCG/ML 2 ML AMP ONE (12:34)
[2016-04-16] MEDS ORDERED: fentaNYL (PF) 50 MCG/ML 2 ML AMP IV ONE (12:35)
[2016-04-16] MEDS ORDERED: LIDOCAINE 2% INJ 20 MG/ML SQ ONE (12:41)
[2016-04-16] MEDS ORDERED: BIVALIRUDIN BOLUS 250 MG/50 ML IV ONE (12:59)
[2016-04-16] MEDS ORDERED: BIVALIRUDIN 250 MG in SODIUM CHLORIDE 0.9% 50 ML IV ONE (12:59)
[2016-04-16] MEDS ORDERED: RX INFO: IV CONTRAST WAS GIVEN 1 EACH MISC MISCELLANE PRN (13:12)
[2016-04-16] MEDS ORDERED: IOHEXOL 350 MG/ML 100 ML BOTTLE INJ ONE (13:14)
[2016-04-16] MEDS ORDERED: SODIUM CHLORIDE 0.9% 1,000 ML IV SCH (13:15)
[2016-04-16 14:52] VITALS: BMI 28.8
[2016-04-16 15:44] LABS: Creatine Kinase 99 U/L (55-170)
[2016-04-16 15:58] LABS: Troponin I <0.012 ng/mL (0.000-0.034)
[2016-04-16] MEDS ORDERED: ATROPINE SULFATE 0.1 MG/ML 10ML SYRINGE ONE (16:34)
[2016-04-16 16:52] LABS: Glucose,Whole Blood 100 mg/dL (75-99)
[2016-04-16 21:08] LABS: Glucose,Whole Blood 121 mg/dL (75-99)
[2016-04-16 21:15] LABS: Creatine Kinase 84 U/L (55-170)
[2016-04-16] MEDS: CALCIUM CARB-MAG CARB-FOLIC 1 EACH TAB PO SCH (21:26)
[2016-04-16 21:28] LABS: Creatine Kinase MB 0.8 ng/mL (0.0-2.4); Troponin I <0.012 ng/mL (0.000-0.034)
[2016-04-16] MEDS ORDERED: traMADol 50 MG TAB PO PRN (21:33)
[2016-04-16] MEDS ORDERED: HYDROCORTISONE 1% CREAM 30 GM TUBE TOPICAL PRN (21:33)
--- NOTE | 2016-04-16 22:00 | CC ---
DATE OF SERVICE: April 16, 2016 Performing physician: Manuel Abdalla, petroleum refinery operator. PROCEDURE PERFORMED: Selective right and left coronary angiogram. INDICATION: This is a pleasant 70-year-old gentleman who is known to have coronary artery disease and known intermediate disease involving the LAD presented to the hospital with chest discomfort and this is his second admission within the last 2 days. Heart catheterization is to make sure that there is no progression in the severity of the LAD disease. Approach: Right common femoral artery. Complications: None. Level of sedation: Moderate. PROCEDURE DESCRIPTION: After obtaining informed consent, the patient was brought to the cardiac bolt labeler. The right common femoral artery was cannulated using micropuncture technique. Micropuncture wire passed easily. Then I placed 6 [place] sheath in the right common femoral artery. Subsequently, I did selective right and left coronary angiogram using JR4 and JL 3.5 catheters. The procedure was completed without any complication. SELECTIVE CORONARY ANGIOGRAM: 1. The right coronary artery is a large-caliber vessel and it is a dominant vessel. The RCA has mild to moderate diffuse disease only, mild to moderate diffuse disease up to about 40% in the midportion. 2. The left main is angiographically normal. It bifurcates into the left circumflex and left anterior descending artery. 3. Left circumflex is a large-caliber vessel. It is a nondominant vessel. The proximal circumflex is angiographically normal. The mid circumflex is normal and gives rise into a large OM branch, which appeared to be angiographically normal and the circ continues as a small-caliber vessel in the AV groove. 4. Left anterior descending artery: The proximal LAD has eccentric lesion that seems to be in the range of 60%. It is calcified. The mid LAD appeared to have mild disease only and LAD distally appeared to have mild disease only. CONCLUSION: 1. Calcified right and left coronary system. 2. Intermediate disease involving the proximal left anterior descending artery appeared to be in the range of 60%. POSTPROCEDURE MANAGEMENT: FFR of the LAD.
[2016-04-16] MEDS: CITALOPRAM HYDROBROMIDE 20 MG TAB PO SCH (22:12)
[2016-04-16] MEDS: lamoTRIgine 25 MG TAB PO SCH (22:13)
[2016-04-16] MEDS: MEMANTINE 10 MG TAB PO SCH (22:13)
[2016-04-16] MEDS: METOPROLOL TARTRATE 25 MG TAB PO SCH (22:13)
[2016-04-16] MEDS: DONEPEZIL 10 MG TAB PO SCH (22:13)
[2016-04-16] MEDS: PRIMIDONE 50 MG TAB PO SCH (22:14)
[2016-04-16] MEDS: clonazePAM 0.5 MG TAB PO SCH (22:24)
[2016-04-16] MEDS: SYMBICORT 160-4.5 MCG INHALER INHALATION SCH (23:26)
[2016-04-17] MEDS: METOPROLOL TARTRATE 25 MG TAB PO SCH ×2 (03:11→17:42)
[2016-04-17] MEDS: ATORVASTATIN 80 MG TAB PO SCH (03:11)
[2016-04-17] MEDS: MEMANTINE 10 MG TAB PO SCH ×2 (03:12→17:42)
[2016-04-17 05:53] LABS: Glucose,Whole Blood 92 mg/dL (75-99)
[2016-04-17] MEDS: CALCIUM CARB-MAG CARB-FOLIC 1 EACH TAB PO SCH ×3 (06:25→17:43)
[2016-04-17 06:49] LABS: Basophils % (A) 1 %; CH 32.1; CHCM 32.4; Eosinophils # (A) 0.2 k/uL (0-0.7); Eosinophils % (A) 2 %; HCT 39.3 % (39.0-53.0); HDW 2.18; HGB 12.9 gm/dL (13.0-17.5); Luc # (Auto) 0.14; Luc % (Auto) 2; Lymphocytes # (A) 1.9 k/uL (1.0-4.8); Lymphocytes % (A) 22 %; MCH 32.7 pg (25.0-35.0); MCHC 32.9 g/dL (31.0-37.0); MCV 99.4 fL (80.0-100.0); Mean Platelet Volume 7.3; Monocytes # (A) 0.5 k/uL (0-1.0); Monocytes % (A) 6 %; Neutrophils % (A) 68 %; RBC 3.95 m/uL (4.30-5.90); RDW 12.9 % (11.5-15.5); WBC 8.8 k/uL (3.8-10.6)
[2016-04-17 07:08] LABS: Cholesterol 126 mg/dL (<200); HDL Cholesterol 66 mg/dL (40-60); Triglycerides 81 mg/dL (<150)
--- NOTE | 2016-04-17 07:44 | HP ---
DATE OF ADMISSION: 04/16/2016 PRESENTING COMPLAINT: Presented with chest pain. HISTORY OF PRESENTING COMPLAINT: This is a 70-year-old patient who was just discharged yesterday. Patient follows with Dr. Yates. Chronic stable medical conditions include COPD, Alzheimer's dementia, diabetes mellitus type 2, hypertension, multiple sclerosis, sleep apnea, peripheral neuropathy, depression. Patient's last cardiac cath was done at [facility] and told he has less than 70% lesion that was nonobstructive. Patient presented with chest pain, seen by Dr. Abdalla and he was subsequently discharged. Troponins have been negative. Patient yet again presented with further chest pain. The patient was taken to cardiac research laboratory manager but the FFR machine was not working; hence, no further intervention was done. REVIEW OF SYSTEMS: CONSTITUTIONAL: Tired. HEENT: Decreased hearing. RESPIRATORY: None. CARDIOVASCULAR: As above. GASTROINTESTINAL: None. GENITOURINARY: None. MUSCULOSKELETAL: None. DERMATOLOGIC: None. HEMATOLOGIC: None. LYMPHATICS: None. PSYCHIATRY: Forgetful. NEUROLOGICAL: None. Past medical history of COPD, dementia Alzheimer's type, diabetes mellitus type 2, hypertension multiple sclerosis, Alzheimer's dementia, optic neuritis, sleep apnea, peripheral neuropathy, hard of hearing, nonobstructive coronary artery disease. PAST SURGICAL HISTORY: Cholecystectomy, cardiac cath with a patent stent in 2012, cataracts with lens implant bilaterally, left hand trigger finger. SOCIAL HISTORY: . Smoked from 1964 to 2010.Alcohol none. FAMILY HISTORY: Myocardial infarction, stroke. ALLERGIES to ATIVAN, LISINOPRIL, TYLENOL. HOME MEDICATIONS: 1. Ultram 50 mg p.o. q.6 p.r.n. 2. Flagyl 375 topical b.i.d. p.r.n. 3. Lamictal 50 mg p.o. b.i.d. 4. Klonopin 0.5 mg p.o. daily at 5:00 p.m. 5. Spiriva 2 puffs b.i.d. 6. Onglyza 5 mg p.o. daily. 7. Mysoline 100 mg p.o. b.i.d. 8. Nitrostat 0.4 sublingual q.5 p.r.n. 9. Lopressor 25 mg p.o. t.i.d. 10. Namenda 10 mg p.o. b.i.d. 11. Melatonin. 12. Imdur ER 60 mg p.o. daily. 13. Hydrocortisone 1% topical b.i.d. p.r.n. 14. EpiPen p.r.n. 15. Aricept 20 mg p.o. daily at 5:00 p.m. 16. Aggrenox 1 tablet p.o. b.i.d. 17. Vitamin B12, 1000 mcg p.o. daily. 18. Celexa 40 mg p.o. daily. 19. Vitamin D3, 2000 units p.o. daily. 20. Symbicort 160/4.5, 2 puffs b.i.d. 21. Lipitor 80 mg p.o. daily. 22. Aspirin 81 mg p.o. daily. On examination, temperature 96.9, pulse 60, respirations 16, blood pressure 109/73, pulse ox 98% on 2 liters. GENERAL APPEARANCE: Average build, laying in bed, not comfortable. EYES: Pupils equal, conjunctivae normal. HEENT: External appearance of ears and nose normal. NECK: JVD not raised. RESPIRATORY: Effort normal. Lungs are clear. CARDIOVASCULAR: First and second sounds normal. No edema. ABDOMEN: Soft, 04/16/2016. Liver and spleen not palpable. LYMPHATIC: No lymph nodes palpable in neck or axillae. PSYCHIATRY: Alert and oriented. Awake, answers simple questions. NEUROLOGICAL: Pupils equal. Cranial nerves grossly intact. Power and sensation grossly intact. INVESTIGATIONS: White count 9.6, hemoglobin 13. Troponin x3 negative. EKG: Normal sinus rhythm. ASSESSMENT: 1. Possible unstable angina in patient with known prior coronary artery disease. The patient did have a cardiac cath today. FFR could be established. 2. Chronic obstructive pulmonary disease in an ex-smoker. 3. Alzheimer's dementia, late onset, no psychosis. 4. Diabetes mellitus type 2, on oral hypoglycemia. 5. Essential hypertension. 6. Multiple sclerosis causing peripheral neuropathy. 7. Depression, not otherwise specified. PLAN: Continue medications and treatment plan. Await further input from cardiology. Care was discussed with the patient.
[2016-04-17] MEDS: SYMBICORT 160-4.5 MCG INHALER INHALATION SCH ×2 (08:15→20:18)
[2016-04-17] MEDS: TIOTROPIUM 18 MCG/PUFF INHALER INHALATION SCH ×2 (08:15→20:17)
[2016-04-17] MEDS ORDERED: ATORVASTATIN 80 MG TAB PO STA (08:26)
[2016-04-17] MEDS ORDERED: ASPIRIN 325 MG TAB PO STA (08:26)
[2016-04-17] MEDS: ASPIRIN 81 MG CHEW PO SCH (08:59)
[2016-04-17] MEDS ORDERED: ASPIRIN 325 MG TAB PO SCH (09:00)
[2016-04-17] MEDS: lamoTRIgine 25 MG TAB PO SCH ×2 (09:06→21:59)
[2016-04-17] MEDS: PRIMIDONE 50 MG TAB PO SCH ×2 (09:06→21:59)
[2016-04-17 11:57] LABS: Glucose,Whole Blood 93 mg/dL (75-99)
[2016-04-17] MEDS ORDERED: HEPARIN SODIUM,PORCINE 30 ML 30 ML ONE (13:28)
[2016-04-17] MEDS ORDERED: LIDOCAINE 2% INJ 20 MG/ML (20 ML MDV) ONE (13:46)
[2016-04-17] MEDS ORDERED: fentaNYL (PF) 50 MCG/ML 2 ML AMP ONE (13:47)
[2016-04-17] MEDS ORDERED: SODIUM CHLORIDE 0.9% 500 ML IV ONE (13:50)
[2016-04-17] MEDS: fentaNYL (PF) 50 MCG/ML 2 ML AMP IV ONE ×2 (13:59→14:27)
[2016-04-17] MEDS ORDERED: LIDOCAINE 2% INJ 20 MG/ML SQ ONE (14:08)
[2016-04-17] MEDS ORDERED: BIVALIRUDIN 250 MG in SODIUM CHLORIDE 0.9% 50 ML IV ONE (14:12)
[2016-04-17] MEDS ORDERED: BIVALIRUDIN BOLUS 250 MG/50 ML IV ONE (14:12)
[2016-04-17] MEDS ORDERED: ADENOSINE 90 MG in SODIUM CHLORIDE 0.9% 60 ML IVP ONE (14:32)
[2016-04-17] MEDS ORDERED: IOHEXOL 350 MG/ML 100 ML BOTTLE INJ ONE (14:40)
[2016-04-17] MEDS ORDERED: RX INFO: IV CONTRAST WAS GIVEN 1 EACH MISC MISCELLANE PRN (14:42)
[2016-04-17] MEDS ORDERED: MAG HYDROX/AL HYDROX/SIMETH 30 ML CUP PO PRN (14:42)
[2016-04-17] MEDS ORDERED: ZOLPIDEM 5 MG TAB PO PRN (14:42)
[2016-04-17] MEDS ORDERED: NITROGLYCERIN SL TABS 0.4 MG TAB SUBLINGUAL PRN (14:42)
[2016-04-17] MEDS ORDERED: SODIUM CHLORIDE 0.9% 1,000 ML IV SCH (14:45)
--- NOTE | 2016-04-17 16:57 | PN ---
DATE OF SERVICE: 04/17/2016 PRESENTING COMPLAINT: Chest pain. INTERVAL HISTORY: This is a patient with known coronary artery disease, did go for a cardiac catheterization yesterday. FFR machine was not working. Patient due to go back for a cardiac cath today. is at bedside. No further chest pain. Review of systems done for constitutional, cardiovascular, GI, pulmonary; relevant findings as above. Current medications are reviewed. On examination, temperature 97.9, pulse 61, respirations 18, blood pressure 120/65, pulse ox 97% on room air. GENERAL APPEARANCE: Lying in bed, comfortable. EYES: Pupils equal. Conjunctivae normal. NECK: JVD not raised. Mass not palpable. RESPIRATORY: Effort normal. Lungs are clear. CARDIOVASCULAR: First and second sounds normal. No edema. ABDOMEN: Soft, nontender. Liver and spleen not palpable. PSYCHIATRY: Alert and oriented x3. Mood and affect normal. INVESTIGATIONS: White count 8.8, hemoglobin 12.9. ASSESSMENT: 1. Possible unstable angina in a patient with known coronary artery disease. The patient referred cardiac cath today as FFR could not be done yesterday. 2. Chronic obstructive pulmonary disease in an ex-smoker. 3. Alzheimer's dementia, late onset, no psychosis. 4. Diabetes mellitus type 2 on oral hypoglycemic. 5. Essential hypertension. 6. Multiple sclerosis causing peripheral neuropathy. 7. Depression, not otherwise specified. PLAN: Care was discussed with the patient, await cardiac cath with FFR and go from there.
[2016-04-17] MEDS ORDERED: ISOSORBIDE MONONITRATE ER 60 MG TAB.ER.24H PO SCH (17:00)
[2016-04-17] MEDS ORDERED: CYANOCOBALAMIN 500 MCG TAB PO SCH (17:00)
[2016-04-17 17:41] LABS: Glucose,Whole Blood 113 mg/dL (75-99)
[2016-04-17] MEDS: DONEPEZIL 10 MG TAB PO SCH (17:42)
[2016-04-17] MEDS: CITALOPRAM HYDROBROMIDE 20 MG TAB PO SCH (17:42)
[2016-04-17] MEDS: clonazePAM 0.5 MG TAB PO SCH (17:42)
--- NOTE | 2016-04-17 21:07 | LTR ---
April 17, 2016 RE: Asaf Seo Millicent Dear Dr. Meyers: Rayray Yap presented to [facility] twice with chest discomfort over the last few days. As you know, he has CAD and known to have intermediate disease involving the mid LAD. He underwent a heart catheterization which showed intermediate disease involving the LAD and I did fractional of flow reserve, which came in to be nonischemic. Maximized medical treatment was recommended. I want to thank you for allowing me to participate in his care. Sincerely, JOSÉ HUGHES MD
--- NOTE | 2016-04-17 21:16 | PCN ---
DATE OF PROCEDURE: April 17, 2016 Performing physician: Manuel Abdalla M.D., clinical education academic coordinator. PROCEDURE PERFORMED: Fractional flow reserve, FFR, of the left anterior descending artery. INDICATION: This is a pleasant 70-year-old gentleman known to have coronary artery disease and known to have intermediate disease involving the mid LAD. He has a recurrent hospital admission with chest discomfort. He underwent a heart catheterization yesterday which showed intermediate disease involving the mid LAD and he was brought today to undergo an FFR of the LAD. Approach: Right common femoral artery. COMPLICATIONS: None. Level of sedation: Moderate. PROCEDURE DESCRIPTION: After obtaining informed consent, the patient was brought to the cardiac labor union business representative. The right common femoral artery was cannulated using micropuncture technique. Micropuncture wire passed easily. Then I placed 6 [place] sheath in the right common femoral artery. Subsequently, I did FFR of the LAD, where I did zeroing of the Doppler wire and equalization between the Doppler wire and the guiding catheter, which was JL 3.0 guiding catheter. The FFR came in to be 0.92, which is nonischemic. The procedure was completed without any complication. CONCLUSION: Fractional flow reserve, FFR, of the LAD was performed and came in to be non- ischemic. POSTPROCEDURE MANAGEMENT: 1. Maximize medical treatment. 2. Follow up with the patient.
[2016-04-18 02:02] LABS: Magnesium 1.5 mg/dL (1.6-2.3); Potassium 4.4 mmol/L (3.5-5.1)
[2016-04-18] MEDS ORDERED: MELATONIN 3 MG TABLET PO SCH (03:00)
[2016-04-18] MEDS ORDERED: METOPROLOL TARTRATE 25 MG TAB PO STA (04:27)
[2016-04-18] MEDS: ATORVASTATIN 80 MG TAB PO SCH (04:53)
[2016-04-18] MEDS: MEMANTINE 10 MG TAB PO SCH (04:53)
[2016-04-18] MEDS: METOPROLOL TARTRATE 25 MG TAB PO SCH (05:02)
[2016-04-18] MEDS: MAGNESIUM SULFATE-D5W PMX 1 GM in DEXTROSE/WATER 1 100ML.BAG IVPB SCH ×2 (05:16→06:49)
[2016-04-18 06:08] VITALS: RESP 18
[2016-04-18 06:32] LABS: Basophils # (A) 0.1 k/uL (0-0.2); Basophils % (A) 1 %; CH 32.3; CHCM 32.9; Eosinophils # (A) 0.2 k/uL (0-0.7); Eosinophils % (A) 2 %; HCT 38.2 % (39.0-53.0); HDW 2.18; HGB 12.1 gm/dL (13.0-17.5); Luc # (Auto) 0.12; Luc % (Auto) 1; Lymphocytes # (A) 1.4 k/uL (1.0-4.8); Lymphocytes % (A) 15 %; MCH 31.2 pg (25.0-35.0); MCHC 31.7 g/dL (31.0-37.0); MCV 98.6 fL (80.0-100.0); Mean Platelet Volume 7.9; Monocytes # (A) 0.7 k/uL (0-1.0); Monocytes % (A) 8 %; Neutrophils # (A) 7.1 k/uL (1.3-7.7); Neutrophils % (A) 74 %; RBC 3.88 m/uL (4.30-5.90); WBC 9.6 k/uL (3.8-10.6); WBC (Perox) 9.88
[2016-04-18 06:38] LABS: Non-African American GFR(MDRD) >60 (>60 ml/min/1.73 sqM)
[2016-04-18] MEDS: CALCIUM CARB-MAG CARB-FOLIC 1 EACH TAB PO SCH ×2 (06:49→11:32)
[2016-04-18] MEDS: PRIMIDONE 50 MG TAB PO SCH (07:40)
[2016-04-18] MEDS: lamoTRIgine 25 MG TAB PO SCH (07:41)
[2016-04-18] MEDS: ASPIRIN 81 MG CHEW PO SCH (07:42)
[2016-04-18 08:01] VITALS: TEMP 96.7
[2016-04-18] MEDS: TIOTROPIUM 18 MCG/PUFF INHALER INHALATION SCH (11:33)
[2016-04-18] MEDS: SYMBICORT 160-4.5 MCG INHALER INHALATION SCH (11:33)
[2016-04-18 11:54] VITALS: BP 143/71; PULSE 52
--- NOTE | 2016-04-18 15:44 | P.PN ---
Subjective Principal diagnosis: Chest pain This is a pleasant 70-year-old gentleman with a past medical history significant for coronary artery disease, hypertension, dyslipidemia, and mild cognitive disorder, presented to the hospital again complaining of chest discomfort. He was admitted to the hospital over the weekend with atypical chest discomfort. He was ruled out for acute coronary event. Maximize medical treatment was recommended at that point and the patient was discharged home on oral nitrate. He presented back to the hospital complaining of chest discomfort where he had 2 episodes one last night and one this morning. The cardiac enzymes came in to be unremarkable. The EKG showed sinus rhythm without any significant ST or T-wave abnormalities. In July 2015, the patient underwent a heart catheterization at the [facility] that showed intermediate lesion involving the mid left anterior descending artery. And medical treatment was recommended at that point. Catheterization was performed which revealed calcified right and left coronary system. Intermediate disease involving the proximal LAD appeared to be in the range of 60%. FFR was performed which came to be nonischemic and maximal medical therapy was advised. Patient was seen and examined this morning, denies any chest pain or difficulty in breathing. He's been up ambulating without any difficulty. He was noted to have a brief run of nonsustained ventricular tachycardia on the monitor, mag level I.4 which was replaced. Objective - Vital Signs Vital signs: Vital Signs Temp 96.7 F L 04/18/16 07:57 Pulse 52 L 04/18/16 11:52 Resp 18 04/18/16 11:52 BP 143/71 04/18/16 11:52 Pulse Ox 97 04/18/16 11:52 Intake & Output 04/17/16 04/18/16 04/18/16 18:59 06:59 18:59 Intake Total 632.03 620 Output Total 775 200 Balance -142.97 -200 620 Weight 81.2 kg Intake: IV 332.03 200 Magnesium Sulfate-D5w Pmx 200 1 gm In Dextrose/Water 1 100ml.bag @ 100 mls/hr IVPB Q1H [facility] Rx#: [id number] Oral 300 420 Output: Urine 775 200 Other: Voiding Method Toilet # Voids 1 1 # Bowel Movements 1 - Exam PHYSICAL EXAMINATION: HEENT: Head is atraumatic, normocephalic. Pupils equal, round. Neck is supple. There is no elevated jugular venous pressure. HEART EXAMINATION: Heart S1, S2 normal. No murmur or gallop heard. CHEST EXAMINATION: Lungs are clear to auscultation and precussion. No chest wall tenderness is noted on palpation or with deep breathing. ABDOMEN: Soft, nontender. Bowel sounds are heard. No organomegaly noted. Right groin soft, no evidence of any hematoma, mild ecchymosis. EXTREMITIES: 2+ peripheral pulses with no evidence of peripheral edema and no calf tenderness noted. NEUROLOGIC patient is awake, alert and oriented -3. . - Labs CBC & Chem 7: 04/18/16 06:03 04/18/16 06:01 Labs: Abnormal Lab Results - Last 24 Hours (Table) 04/17/16 04/18/16 04/18/16 Range/Units 16:52 01:34 06:03 RBC 3.88 L (4.30-5.90) m/uL Hgb 12.1 L (13.0-17.5) gm/dL Hct 38.2 L (39.0-53.0) % POC Glucose (mg/dL) 113 H (75-99) mg/dL Magnesium 1.5 L (1.6-2.3) mg/dL Assessment and Plan (1) S/P cardiac cath Status: Acute (2) Chest pain Status: Acute (3) Dementia Status: Acute (4) Dyslipidemia Status: Acute (5) Hypomagnesemia Status: Acute Plan: From cardiology's perspective, patient may be able to be discharged home today. We'll make him a follow-up appointment to see Dr. Boykin in the office post discharge. DNP note has been reviewed, I agree with a documented findings and plan of care. Patient was seen and examined.
--- NOTE | 2016-04-19 10:06 | DS ---
DATE OF ADMISSION: 04/16/2016 DATE OF DISCHARGE: 04/18/2016 FINAL DIAGNOSES: 1. Possible unstable angina, could be vasospastic disease. 2. Chronic obstructive pulmonary disease in an ex-smoker. 3. Alzheimer's dementia, late onset, no psychosis. 4. Diabetes mellitus type 2 on oral hypoglycemic. 5. Essential hypertension. 6. Multiple sclerosis causing peripheral neuropathy. 7. Depression, not otherwise specified. PROCEDURE: Cardiac catheterization with FFR, not found to be significant. HOSPITAL COURSE: This patient was just discharged from the hospital yet again presented with chest pain. Had a cardiac catheterization, FFR was not found to be significant. Dr. Abdalla okayed the patient to be discharged. On exam, lungs are clear. CARDIOVASCULAR: First and second seconds are normal. DISCHARGE MEDICATIONS: 1. Vitamin D3, 2000 units p.o. daily. 2. Celexa 40 mg p.o. daily at 5 p.m. 3. Aggrenox 1 tablet p.o. b.i.d. 4. Aricept 20 mg q.h.s. 5. Melatonin 3 mg q.h.s. 6. Namenda 10 mg b.i.d. 7. Lopressor 25 mg p.o. b.i.d. 8. Nitrostat 0.4 sublingual q.5 p.r.n. 9. Spiriva 1 puff daily. 10. Klonopin 0.5 p.o. daily. 11. Lamictal 50 mg p.o. b.i.d. 12. Mysoline 100 mg p.o. b.i.d. 13. Onglyza 5 mg p.o. daily. 14. EpiPen p.r.n. 15. Metformin 1000 mg b.i.d. 16. Lipitor 80 mg p.o. daily. 17. Symbicort 160/4.5 two puffs b.i.d. 18. Vitamin B12, 1000 mcg p.o. daily. 19. Ultram 50 mg p.o. q.6 p.r.n. 20. Hydrocortisone 1% topical b.i.d. p.r.n. 21. Metronidazole 0.75% cream topical b.i.d. p.r.n. 22. Aspirin 81 mg a day. 23. Imdur ER 60 mg p.o. daily. Follow up with Dr. Abdalla on 04/23/16. Follow up with Dr. Meyers on 04/15/16.
== END 2016-04-18 15:27 | disposition home or self-care (01) ==
LOC: EC 08:06 → 3OBS 10:44 → 6SEL 13:37
PROVIDERS: ADMIT Hospitalist; ATTEND Hospitalist
DX: R07.89 Other chest pain (principal); I25.10 Atherosclerotic heart disease of native coronary artery without angina pectoris; J44.9 Chronic obstructive pulmonary disease, unspecified; G30.9 Alzheimer's disease, unspecified; F02.80 Dementia in other diseases classified elsewhere, unspecified severity, without behavioral disturbance, psychotic disturbance, mood disturbance, and anxiety; E11.42 Type 2 diabetes mellitus with diabetic polyneuropathy; I10 Essential (primary) hypertension; G35 Multiple sclerosis; E78.5 Hyperlipidemia, unspecified; G47.30 Sleep apnea, unspecified; F41.9 Anxiety disorder, unspecified; F32.9 Major depressive disorder, single episode, unspecified; I47.2 Ventricular tachycardia; E83.42 Hypomagnesemia; H91.93 Unspecified hearing loss, bilateral; F09 Unspecified mental disorder due to known physiological condition; Z95.5 Presence of coronary angioplasty implant and graft; Z79.02 Long term (current) use of antithrombotics/antiplatelets; Z79.82 Long term (current) use of aspirin; Z79.84 Long term (current) use of oral hypoglycemic drugs; Z79.899 Other long term (current) drug therapy; Z79.51 Long term (current) use of inhaled steroids; Z88.8 Allergy status to other drugs, medicaments and biological substances; Z96.1 Presence of intraocular lens; Z87.891 Personal history of nicotine dependence; Z82.49 Family history of ischemic heart disease and other diseases of the circulatory system; Z82.3 Family history of stroke
CPT/HCPCS: 96376 ×2; 96365 ×2; 99291 ×2; 93571; 36415; 94640 ×3; 93005; 93454; 83880; 80061; 80053; 82565; 82550; 82553; 83690; 83735 ×2; 84132; 84484; 85025 ×3; 85610; 85730; 71020; G0378 ×3; C1887; C1769 ×3; C1894; J2001 ×2; J1644 ×2; Q9967 ×2; J3010 ×2; J3475; J0583 ×2; J0153

== ENCOUNTER 2016-05-23 17:32 | Emergency (ER) | payer MEDICARE ==
[2016-05-23 18:56] LABS: Basophils # (A) 0.1 k/uL (0-0.2); Basophils % (A) 1 %; CH 31.5; CHCM 32.1; Eosinophils # (A) 0.1 k/uL (0-0.7); Eosinophils % (A) 1 %; HCT 39.6 % (39.0-53.0); HDW 2.35; HGB 12.7 gm/dL (13.0-17.5); Luc # (Auto) 0.14; Luc % (Auto) 2; Lymphocytes # (A) 1.2 k/uL (1.0-4.8); Lymphocytes % (A) 15 %; MCH 31.7 pg (25.0-35.0); MCHC 32.2 g/dL (31.0-37.0); MCV 98.5 fL (80.0-100.0); Mean Platelet Volume 7.4; Monocytes # (A) 0.5 k/uL (0-1.0); Monocytes % (A) 6 %; Neutrophils # (A) 6.1 k/uL (1.3-7.7); Neutrophils % (A) 76 %; RBC 4.02 m/uL (4.30-5.90); RDW 13.5 % (11.5-15.5); WBC (Perox) 8.09
--- NOTE | 2016-05-23 19:00 | XR ---
EXAMINATION TYPE: XR chest 2V DATE OF EXAM: 05/23/2016 6:52 PM COMPARISON: 04/16/2016 HISTORY: Chest pain TECHNIQUE: Frontal and lateral views of the chest are obtained. FINDINGS: Heart and mediastinum are normal. Lungs are clear. Diaphragm is normal. There are chest le ads. Bony thorax is intact. There are no hilar masses. IMPRESSION: Normal chest. No change.
[2016-05-23 19:15] VITALS: RESP 18
[2016-05-23 19:15] LABS: INR 1.2 (<1.1); Partial Thromboplastin Time 23.4 sec (22.0-30.0)
[2016-05-23 19:20] LABS: ALT 44 U/L (21-72); AST 31 U/L (17-59); Alkaline Phosphatase 65 U/L (38-126); Anion Gap 15 mmol/L; Blood Urea Nitrogen 22 mg/dL (9-20); Calcium 9.5 mg/dL (8.4-10.2); Carbon Dioxide 25 mmol/L (22-30); Chloride 104 mmol/L (98-107); Glucose 113 mg/dL (74-99); Non-African American GFR(MDRD) >60 (>60 ml/min/1.73 sqM); Sodium 144 mmol/L (137-145); Total Bilirubin 0.7 mg/dL (0.2-1.3); Total Protein 6.6 g/dL (6.3-8.2)
[2016-05-23 19:33] LABS: Creatine Kinase MB 0.5 ng/mL (0.0-2.4); Troponin I <0.012 ng/mL (0.000-0.034)
--- NOTE | 2016-05-23 19:37 | ED ---
Chest Pain HPI - General Chief Complaint: Chest Pain Stated Complaint: chest pain, has Hx Time Seen by Provider: 05/23/16 17:57 Source: patient, family Mode of arrival: wheelchair Limitations: no limitations - History of Present Illness Initial Comments: This is a 70-year-old male with a history of CAD and intermittent chest pain who presented to emergency department for an episode of chest pain today. He stated that it was left-sided and felt like a pressure sensation. He took 3 of his nitro without much relief and thus was concerned and decided to come emergency department. He states that now he has no chest pain and feels back to normal. Patient denied any associated shortness of breath. No lightheadedness. No nausea or vomiting. The patient recently had a cath one month ago that did not show any lesions in his heart that required stenting. He was started on Imdur with hopes of improving his intermittent chest pain however he had the episode today. The patient follows with Dr. Abdalla. - Related Data Home Medications Medication Instructions Recorded Confirmed Cholecalciferol [Vitamin D3] 2,000 unit PO DAILY@169907/30/13 05/23/16 Citalopram Hydrobromide 40 mg PO DAILY@169907/30/13 05/23/16 [Citalopram HBr] Dipyridamole-Aspirin 200-25 mg 1 tab PO BID@299,169907/30/13 05/23/16 [Aggrenox 25MG -200MG] Donepezil HCl 20 mg PO DAILY@169907/30/13 05/23/16 Melatonin 3 - 6 mg PO HS 07/30/13 05/23/16 Memantine [Namenda] 10 mg PO BID@030,169907/30/13 05/23/16 Metoprolol Tartrate [Lopressor] 25 mg PO PC-BID@299,169907/30/13 05/23/16 Nitroglycerin Sl Tabs [Nitrostat] 0.4 mg SUBLINGUAL Q5M PRN 07/30/13 05/23/16 Tiotropium 18 Mcg/Puff [Spiriva] 2 puff INHALATION RT-BID 07/30/13 05/23/16 clonazePAM [KlonoPIN] 0.5 mg PO DAILY@169907/30/13 05/23/16 lamoTRIgine [LaMICtal] 50 mg PO BID 07/30/13 05/23/16 Primidone [Mysoline] 100 mg PO BID 04/07/14 05/23/16 Saxagliptin HCl [Onglyza] 5 mg PO DAILY@1700 04/07/14 05/23/16 metFORMIN HCL 1,000 mg PO BID 07/16/14 05/23/16 Atorvastatin [Lipitor] 80 mg PO DAILY@0300 03/11/15 05/23/16 Budesonide-Formot 160-4.5 Mcg 2 puff INHALATION RT-BID 03/11/15 05/23/16 [Symbicort 160-4.5 Mcg Inhaler] Cyanocobalamin [Vitamin B-12] 1,000 mcg PO DAILY@1700 03/11/15 05/23/16 traMADol HCl [Ultram] 50 mg PO Q6H PRN 03/11/15 05/23/16 Hydrocortisone Cream 1 applic TOPICAL BID PRN 04/14/16 05/23/16 [Hydrocortisone 1% Cream] metroNIDAZOLE 0.75% CREAM 1 applic TOPICAL BID PRN 04/14/16 05/23/16 Previous Rx's Medication Instructions Recorded EPINEPHrine [Epipen 2-Americo] 0.3 mg IM ONCE PRN #1 ml 04/08/14 Aspirin 81 mg PO DAILY #1 chewable 04/15/16 Isosorbide Mononitrate ER [Imdur] 60 mg PO DAILY@1700 #30 tab.er.24h 04/15/16 Allergies Allergy/AdvReac Type Severity Reaction Status Date / Time acetaminophen [From Tylenol] Allergy Rash/Hives Verified 05/23/16 19:03 lisinopril Allergy Dyspnea Verified 05/23/16 19:03 lorazepam [From Ativan] AdvReac Hallucinati Verified 05/23/16 19:03 ons Review of Systems ROS Statement: Those systems with pertinent positive or pertinent negative responses have been documented in the HPI. ROS Other: All systems not noted in ROS Statement are negative. EKG Findings - EKG Comments: EKG Findings:: EKG showing normal sinus rhythm with a rate of 79. No ST segment changes or T-wave inversions. QTC is 449. Other intervals are normal. No ectopy. Past Medical History Past Medical History: Coronary Artery Disease (CAD), Chest Pain / Angina, COPD, Dementia, Diabetes Mellitus, Hypertension, Musculoskeletal Disorder, Neurologic Disorder Additional Past Medical History / Comment(s): Pt recently admitted 04/13/16 with left anterior chest pain. Other hx; CAD with one cardiac vessel 60% occluded , MULTIPLE SCLEROSIS (which has also affected the pt cognitively), falls, unsteady gait, parkinson's tremors and essential tremors, CVA per cat scan per spouse, possible alzheimers dementia, optic neuritis bilaterally, sleep apnea- no longer able to tolerate CPAP, peripheral neuropathy bilateral hands and feet , TANACROSS bilaterally, agent orange exposure. History of Any Multi-Drug Resistant Organisms: None Reported Past Surgical History: Cholecystectomy, Heart Catheterization, Orthopedic Surgery, Tonsillectomy Additional Past Surgical History / Comment(s): cardiac caths x 3, cataracts with lens implants bilaterally, left hand trigger finger release, colonoscopies , tonsillectomy, stress tests Past Anesthesia/Blood Transfusion Reactions: No Reported Reaction Past Psychological History: Anxiety, Depression Additional Psychological History / Comment(s): Pt lives in a home with his and dog. Pt is unsteady on his feet and has had numerous falls. He has had 3 falls 2016 Pt's assists him with his ADL's. Pt is able to feed himself. He has a quad cane but choses not to use it. Pt is TANACROSS and has bilateral hearing aides but choses not to wear them. is able to drive. Pt has no outside medical agency coming into home. Pt is a [place] vet. He served in the [employer]. Smoking Status: Former smoker Past Alcohol Use History: None Reported Additional Past Alcohol Use History / Comment(s): Pt started smoking in 1964 and quit in 2000 Past Drug Use History: None Reported - Past Family History Father Family Medical History: CVA/TIA, Myocardial Infarction ([place]) Additional Family Medical History / Comment(s): Father in his late 70's. Mother Family Medical History: Dementia Additional Family Medical History / Comment(s): Mother alive but in poor health. She also has colitis. General Exam - General Exam Comments Initial Comments: Constitutional: Awake alert Appears comfortable Head: Normocephalic atraumatic Eyes: no conjunctival injection No scleral icterus EOMI Neck: No JVD Supple Heart: Regular rate rhythm normal S1-S2 no murmurs Lungs: Clear to auscultation bilaterally No wheezing No rales Abdomen: Soft nondistended nontender Extremities: Non edematous DP pulses intact Radial pulses intact Neuro: A&Ox3 No focal neurologic deficits Psych: Appropriate mood and affect Limitations: no limitations Course Vital Signs 05/23/16 05/23/16 05/23/16 17:38 18:39 19:13 Temperature 97.4 F L 99.0 F Pulse Rate 79 73 70 Respiratory 20 20 18 Rate Blood Pressure 120/55 104/59 117/60 O2 Sat by Pulse 97 99 99 Oximetry 05/23/16 19:51 Temperature Pulse Rate 67 Respiratory 18 Rate Blood Pressure 101/60 O2 Sat by Pulse 99 Oximetry Chest Pain MDM - MDM This is a 70-year-old male presents emergency department for chest pain. It was resolved by time he had emergency department. Blood work was performed and unremarkable. Troponin was negative. Chest x-ray was unchanged. Spoke with Dr. Mccurdy about the patient who recommended no medication changes and close follow-up with Dr. Abdalla as an outpatient. The patient was comfortable with this plan and is stable for discharge home at this time. All questions were answered. Disposition Clinical Impression: Chest pain Disposition: HOME SELF-CARE Condition: Stable Instructions: Chest Pain (ED) Referrals: Suresh Meyers MD [Primary Care Provider] - 1-2 days Dominik Mccurdy MD [STAFF PHYSICIAN] - 1-2 days Manuel Abdalla MD [STAFF PHYSICIAN] - 1-2 days
[2016-05-23 19:52] VITALS: BP 101/60; PULSE 67
[2016-05-23 19:56] VITALS: TEMP 97.6
== END 2016-05-23 20:28 | disposition home or self-care (01) ==
LOC: EC 17:32
DX: R07.9 Chest pain, unspecified (principal); G25.0 Essential tremor; G20 Parkinson's disease; F41.9 Anxiety disorder, unspecified; I10 Essential (primary) hypertension; E11.42 Type 2 diabetes mellitus with diabetic polyneuropathy; I25.10 Atherosclerotic heart disease of native coronary artery without angina pectoris; F03.90 Unspecified dementia, unspecified severity, without behavioral disturbance, psychotic disturbance, mood disturbance, and anxiety; F32.9 Major depressive disorder, single episode, unspecified; Z79.899 Other long term (current) drug therapy; J44.9 Chronic obstructive pulmonary disease, unspecified; G35 Multiple sclerosis; Z98.61 Coronary angioplasty status; Z86.73 Personal history of transient ischemic attack (TIA), and cerebral infarction without residual deficits; Z87.891 Personal history of nicotine dependence; Z88.8 Allergy status to other drugs, medicaments and biological substances; Z88.6 Allergy status to analgesic agent; Z79.51 Long term (current) use of inhaled steroids; Z79.84 Long term (current) use of oral hypoglycemic drugs; Z79.82 Long term (current) use of aspirin
CPT/HCPCS: 36415; 71020; 80053; 82553; 83690; 84484; 85025; 85610; 85730; 93005; 99285

== ENCOUNTER → 2016-06-19 | Outpatient (CLI) | payer MEDICARE ==
--- NOTE | 2016-06-19 16:59 | PN ---
This 71-year-old male patient is coming in for a compliancy check. The patient was diagnosed having severe obstructive sleep apnea with an AHI of 44.3. Upon followup, he is using an Auto BiPAP at a pressure of 15/5 cm of water with a pressure support of 4. He is very compliant with his BiPAP and he is using it every night without interruption. His BiPAP use for more than 4 hours is 100%. His average BiPAP use is around 6.5 hours per night. His AHI while on treatment is down to 3.2. His EPAP P90 minimum is at 7.9 and maximum is at 11.9. He seems to be much more refreshed and alert during the day. No significant impact on his chronic memory problems. He is tolerating the treatment without any major difficulties. He is using Foster FX nasal pillows. BP is 128/66, pulse 58, respiratory rate 16. Temperature is 98.0. Weight is 178. Saturation 98% on room air. GENERAL APPEARANCE: Calm, comfortable. HEENT: Mallampati class IV. No goiter or neck mass. LUNGS: Clear to auscultation. HEART: Sounds are regular rate and rhythm. Normal S1, S2. ABDOMEN: Soft, nontender. No organomegaly. EXTREMITIES: No edema. No cyanosis or clubbing. IMPRESSION: 1. Severe obstructive sleep apnea with an AHI of 44, currently on Auto BiPAP therapy with successful clinical response and compliance. 2. Hypersomnia, improving. 3. Dementia. 4. Parkinson's disease. 5. Multiple sclerosis. 6. Hypertension. 7. Cognitive impairment. 8. Hyperlipidemia. PLAN: 1. Continue treatment with the same level of pressure. 2. Clinical response is adequate and satisfactory. 3. Compliancy data was checked and is satisfactory. 4. Will see him back in a year's time in followup.
== END | disposition home or self-care (01) ==
LOC: SLEEP 13:37
PROVIDERS: ATTEND Internal Medicine Critical Care Medicine
DX: G47.33 Obstructive sleep apnea (adult) (pediatric) (principal); G47.10 Hypersomnia, unspecified; G20 Parkinson's disease; G35 Multiple sclerosis; F02.80 Dementia in other diseases classified elsewhere, unspecified severity, without behavioral disturbance, psychotic disturbance, mood disturbance, and anxiety; Z99.89 Dependence on other enabling machines and devices

== ENCOUNTER 2016-08-16 11:33 | Day surgery (SDC) | payer MEDICARE ==
[2016-08-14 17:33] VITALS: BMI 26.9
[~2016-08-16 11:33] MED LIST: LACTATED RINGERS 1,000 ML IV SCH
[2016-08-16 12:57] VITALS: TEMP 97.6
[2016-08-16] MEDS ORDERED: LIDOCAINE 1% 20 ML VIAL (10MG/ML) FOR IV START INTRADERMA ONE (13:15)
[2016-08-16 13:18] LABS: Glucose,Whole Blood 105 mg/dL (75-99)
[2016-08-16] MEDS ORDERED: PROPOFOL 10 MG/ML 20 ML VIAL IV ONE (13:37)
[2016-08-16 13:59] VITALS: RESP 18
--- NOTE | 2016-08-16 14:03 | P.PCN ---
Date of Procedure: 08/16/16 Preoperative Diagnosis: Postoperative Diagnosis: Procedure(s) Performed: Procedure: Esophagogastroduodenoscopy and biopsy. Preoperative diagnosis: Atypical chest pain. Postoperative diagnosis: 1. Small sliding hiatal hernia with no obvious esophagitis or complicated reflux disease, biopsy obtained. 2. Retained partially digested food in the stomach with no evidence of mechanical obstruction to the gastric outlet. Preparation and sedation: Was provided by anesthesia. Brief clinical history: The patient is a 71-year-old male who I have evaluated in the office recently for atypical chest pains. The patient has history of CAHD with evidence of 60% occlusion of his coronary arteries and has required stent placements in the past. Because of his recurrent unexplained chest pains , this evaluation is scheduled to rule out concomitant GI etiology. Procedure: With the patient on his left lateral decubitus position and after informed consent and adequate sedation, I passed the Olympus-GIF 160 video upper endoscope through the cricopharyngeus down the esophagus. The esophagus appeared healthy with no erosions, ulcers, strictures or Daily's esophagus. GE junction was around 36-37 cm from the incisors and there was a small sliding hiatal hernia. The endoscope was then passed into the stomach which was insufflated with air and inspected in detail including the retroflex view in the cardia. There was retained partially digested food in the stomach. There was no ulcers or evidence of mechanical obstruction to the gastric outlet. The mucosa in the stomach appeared healthy. Pyloric channel, duodenal bulb, post bulbar area and descending duodenum appeared normal. I obtained biopsies from the esophagus and then the endoscope was withdrawn. The patient tolerated the procedure well. Plan: I shared the findings with the patient and his . Will await biopsy results. I will see him in follow-up and keep you updated on his progress. Implants: Indications for Procedure: Operative Findings: Description of Procedure:
[2016-08-16 14:11] VITALS: BP 132/73; PULSE 65
== END 2016-08-16 14:33 | disposition home or self-care (01) ==
LOC: ORWHC2ENDO 11:33
DX: K20.9 Esophagitis, unspecified (principal); K44.9 Diaphragmatic hernia without obstruction or gangrene; K29.70 Gastritis, unspecified, without bleeding; I25.10 Atherosclerotic heart disease of native coronary artery without angina pectoris; R07.89 Other chest pain; Z95.5 Presence of coronary angioplasty implant and graft; J44.9 Chronic obstructive pulmonary disease, unspecified; G47.33 Obstructive sleep apnea (adult) (pediatric); E11.9 Type 2 diabetes mellitus without complications; I10 Essential (primary) hypertension; G35 Multiple sclerosis; G20 Parkinson's disease; F02.80 Dementia in other diseases classified elsewhere, unspecified severity, without behavioral disturbance, psychotic disturbance, mood disturbance, and anxiety; Z79.84 Long term (current) use of oral hypoglycemic drugs; Z79.899 Other long term (current) drug therapy; Z88.6 Allergy status to analgesic agent; Z88.8 Allergy status to other drugs, medicaments and biological substances
CPT/HCPCS: 88305; 43239; J2704

== ENCOUNTER 2016-08-21 14:49 | Inpatient (IN) | payer MEDICARE ==
[2016-08-21] MEDS ORDERED: NITROGLYCERIN SL TABS 0.4 MG TAB SUBLINGUAL PRN ×2 (17:59→18:27)
[2016-08-21] MEDS ORDERED: ATORVASTATIN 80 MG TAB PO STA (17:59)
[2016-08-21] MEDS ORDERED: ASPIRIN 325 MG TAB PO STA (17:59)
[2016-08-21] MEDS ORDERED: traMADol 50 MG TAB PO PRN (18:27)
[2016-08-21] MEDS ORDERED: HYDROCORTISONE 1% CREAM 30 GM TUBE TOPICAL PRN (18:27)
[2016-08-21] MEDS: lamoTRIgine 25 MG TAB PO SCH (20:21)
[2016-08-21 20:58] LABS: Glucose,Whole Blood 206 mg/dL (75-99)
[2016-08-21] MEDS: SODIUM CHLORIDE 0.9% 1,000 ML IV SCH (21:21)
[2016-08-21] MEDS: MELATONIN 3 MG TABLET PO SCH (21:58)
[2016-08-21] MEDS: INSULIN LISPRO (humaLOG) 300 UNIT/3 ML VIAL SQ SCH (21:58)
[2016-08-22] MEDS: ATORVASTATIN 80 MG TAB PO SCH (03:00)
[2016-08-22] MEDS: CHOLECALCIFEROL 1,000 UNIT TAB PO SCH (03:00)
[2016-08-22] MEDS: MEMANTINE 10 MG TAB PO SCH ×2 (03:01→18:35)
[2016-08-22] MEDS: DONEPEZIL 10 MG TAB PO SCH ×2 (03:01→18:34)
[2016-08-22] MEDS: PRIMIDONE 50 MG TAB PO SCH ×2 (03:01→18:34)
[2016-08-22] MEDS: METOPROLOL TARTRATE 25 MG TAB PO SCH ×2 (03:01→18:35)
[2016-08-22 03:21] LABS: Glucose,Whole Blood 218 mg/dL (75-99)
[2016-08-22 05:47] LABS: Glucose,Whole Blood 187 mg/dL (75-99)
[2016-08-22] MEDS: INSULIN LISPRO (humaLOG) 300 UNIT/3 ML VIAL SQ SCH ×4 (06:34→21:24)
[2016-08-22 07:26] LABS: Basophils % (A) 0 %; CH 31.6; Eosinophils % (A) 0 %; HCT 41.8 % (39.0-53.0); HDW 2.07; HGB 13.2 gm/dL (13.0-17.5); Luc # (Auto) 0.12; Luc % (Auto) 1; Lymphocytes # (A) 2.2 k/uL (1.0-4.8); Lymphocytes % (A) 16 %; MCH 31.2 pg (25.0-35.0); MCHC 31.6 g/dL (31.0-37.0); MCV 98.9 fL (80.0-100.0); Mean Platelet Volume 7.5; Monocytes # (A) 0.9 k/uL (0-1.0); Monocytes % (A) 6 %; Neutrophils # (A) 10.5 k/uL (1.3-7.7); Neutrophils % (A) 76 %; RBC 4.22 m/uL (4.30-5.90); RDW 13.9 % (11.5-15.5); WBC 13.8 k/uL (3.8-10.6); WBC (Perox) 13.95
[2016-08-22 07:46] LABS: Anion Gap 10 mmol/L; Blood Urea Nitrogen 28 mg/dL (9-20); Calcium 9.5 mg/dL (8.4-10.2); Carbon Dioxide 30 mmol/L (22-30); Chloride 100 mmol/L (98-107); Glucose 171 mg/dL (74-99); Non-African American GFR(MDRD) >60 (>60 ml/min/1.73 sqM); Sodium 140 mmol/L (137-145)
[2016-08-22] MEDS: DIPYRIDAMOLE-ASPIRIN 200-25 MG 1 EACH CPMP.12HR PO SCH ×2 (07:47→18:36)
[2016-08-22] MEDS ORDERED: ASPIRIN 325 MG TAB PO STA (07:56)
[2016-08-22 07:58] LABS: Potassium 4.2 mmol/L (3.5-5.1)
[2016-08-22] MEDS: lamoTRIgine 25 MG TAB PO SCH ×2 (08:17→21:24)
[2016-08-22] MEDS ORDERED: ENOXAPARIN 40 MG/0.4 ML SYRINGE SQ SCH (09:00)
[2016-08-22] MEDS ORDERED: LIDOCAINE 2% INJ 20 MG/ML (20 ML MDV) ONE (09:08)
[2016-08-22] MEDS ORDERED: fentaNYL (PF) 50 MCG/ML 2 ML AMP ONE (09:22)
[2016-08-22] MEDS ORDERED: LIDOCAINE 2% INJ 20 MG/ML SQ ONE (09:29)
[2016-08-22] MEDS ORDERED: fentaNYL (PF) 50 MCG/ML 2 ML AMP IV ONE (09:29)
[2016-08-22] MEDS ORDERED: BIVALIRUDIN 250 MG in SODIUM CHLORIDE 0.9% 50 ML IV ONE ×2 (09:39→10:07)
[2016-08-22] MEDS ORDERED: IV FLUID CONTINUATION 1,000 ML IV ONE (09:42)
[2016-08-22] MEDS ORDERED: BIVALIRUDIN BOLUS 250 MG/50 ML IV ONE (09:45)
[2016-08-22] MEDS: NITROGLYCERIN 1000MCG/10ML SYRINGE INTRACORON ONE ×2 (10:09→10:15)
[2016-08-22] MEDS ORDERED: CLOPIDOGREL 75 MG TAB ONE (10:12)
[2016-08-22] MEDS ORDERED: CLOPIDOGREL 75 MG TAB PO ONE (10:15)
[2016-08-22] MEDS ORDERED: niCARdipine Syringe (1,000 mcg/10 mL) INTRACORON ONE (10:15)
[2016-08-22] MEDS ORDERED: IOHEXOL 350 MG/ML 125ML BOTTLE INJ ONE (10:24)
[2016-08-22] MEDS ORDERED: RX INFO: IV CONTRAST WAS GIVEN 1 EACH MISC MISCELLANE PRN (10:52)
[2016-08-22] MEDS ORDERED: NITROGLYCERIN SL TABS 0.4 MG TAB SUBLINGUAL PRN (10:52)
[2016-08-22] MEDS ORDERED: ATROPINE SULFATE 0.1 MG/ML 10ML SYRINGE IV PRN (10:52)
[2016-08-22] MEDS ORDERED: MAG HYDROX/AL HYDROX/SIMETH 30 ML CUP PO PRN (10:52)
[2016-08-22] MEDS ORDERED: ZOLPIDEM 5 MG TAB PO PRN (10:52)
[2016-08-22] MEDS ORDERED: SODIUM CHLORIDE 0.9% 1,000 ML IV SCH (11:00)
--- NOTE | 2016-08-22 11:06 | LTR ---
August 22, 2016 VIRGILIO COVINGTON MD RE: Asaf Seo Dear Virgilio: Mr. Asaf Seo underwent successful stenting of the proximal LAD with a good angiographic result and without any complication. I want to thank you for allowing me to participate in his care and please do not hesitate to call us if you have any question or concern. Sincerely, JOSÉ HUGHES MD
[2016-08-22] MEDS: SYMBICORT 160-4.5 MCG INHALER INHALATION SCH (11:34)
[2016-08-22] MEDS: TIOTROPIUM 18 MCG/PUFF INHALER INHALATION SCH (11:35)
[2016-08-22 11:38] LABS: Glucose,Whole Blood 165 mg/dL (75-99)
[2016-08-22 11:46] LABS: Hemoglobin A1C 6.4 % (4.2-6.1)
--- NOTE | 2016-08-22 12:06 | CC ---
DATE OF SERVICE: 08/22/2016 PERFORMING PHYSICIAN: Wesley Perez, Senior J2Ee Developer. PROCEDURE PERFORMED: 1. Selective right and left coronary angiogram. 2. An atherectomy of the proximal left anterior descending artery. 3. Successful stenting of the proximal left anterior descending artery using 3.25 x 15 mm Xience BELTRAN with good angiographic results. INDICATION: This is a pleasant 71-year-old gentleman who is known to have coronary artery disease where he is known to have intermediate disease involving the proximal LAD as well as mid RCA, continues to have chest discomfort with recurrent hospital admissions with chest discomfort as well. Brought in today to undergo stenting of the LAD. APPROACH: Right common femoral artery. COMPLICATIONS: None. LEVEL OF SEDATION: Moderate with a sedation length of 58 minutes. PROCEDURE DESCRIPTION: After obtaining informed consent, the patient was brought to the Cardiac Allocation Analyst. The right common femoral artery was cannulated using micropuncture technique and a micropuncture wire passed easily, then I placed 6 [place] sheath in the right common femoral artery. Subsequently, I did selective right and left coronary angiogram using JR4 diagnostic catheter and JL3 guiding catheter. After that, I did decide to intervene on the LAD. Please see separate paragraph for that. SELECTIVE CORONARY ANGIOGRAM: 1. The right coronary artery is a large-caliber vessel. It is a dominant vessel. It is a heavily calcified vessel. The proximal RCA appeared to have mild disease only. The mid RCA has a lesion that seems to be in the range of 30% to 40%. The RCA distally appeared to have mild disease only and bifurcates into PDA and PLV branches; both are angiographically normal. 2. The left main is angiographically normal. It bifurcates into the left circumflex and left anterior descending artery. 3. The left circumflex is a large-caliber vessel. It is a nondominant vessel. The left circumflex is angiographically normal. 4. The left anterior descending artery. The proximal LAD appeared to have an eccentric lesion calcified, seems to be in the range of 50%. The mid LAD appeared to be angiographically normal and the LAD distally is angiographically normal. The LAD gives rise to a diagonal branch, which seems to be angiographically normal. PCI OF THE LAD: Anticoagulation was initiated using Angiomax. Subsequently, I took JL3 guiding catheter, and the left main was engaged. I did wire the LAD using a Whisper wire. Then I did exchange my Whisper wire into ViperWire using [id number] balloon. After that, I did atherectomy of the LAD using the CSI device. After that, I did balloon angioplasty using 2.5 x 12 mm before I deployed 3.25 x 15 mm Xience BELTRAN, where the stent was positioned under fluoroscopy guidance and it was deployed under 14 atmospheres for 20 seconds. I postdilated the stent using a 3.5 mm NC balloon which was inflated under 18 atmospheres. The following angiogram showed good angiographic result without perforation and without dissection with excellent flow. POSTPROCEDURE MANAGEMENT: 1. Dual antiplatelet therapy. 2. Risk factor modifications. 3. Follow up with the patient.
[2016-08-22] MEDS ORDERED: HYDROmorphone 1 MG/ML 1 ML SYRINGE ONE (12:29)
[2016-08-22] MEDS ORDERED: HYDROmorphone 1 MG/ML 1 ML SYRINGE IVP STA (12:29)
[2016-08-22] MEDS: SODIUM CHLORIDE 0.9% 1,000 ML IV SCH (13:48)
--- NOTE | 2016-08-22 16:44 | HP ---
DATE OF ADMISSION: 08/21/2016 PRESENTING COMPLAINT: Chest pain. HISTORY OF PRESENTING COMPLAINT: This is a pleasant 71-year-old patient, well known to me. Patient originally presented with [facility] with unstable angina. Patient's chronic stable medical conditions include COPD, Alzheimer's dementia, diabetes mellitus, type 2, hypertension, multiple sclerosis with peripheral neuropathy, and depression. Patient in April of this year had a cardiac catheterization by Dr. Abdalla and was found a lesion. He did an FFR; was not felt to be significant, but because patient continued to have recurrent chest pains, when patient presented to the other hospital it was decided to transfer the patient down here for ( ) intervention. Patient is normally ( ) sometimes shortness of breath. This is ( ) to nitroglycerin of varying duration. Also patient recently had a flareup of his multiple sclerosis manifested by increasing confusion. Patient is followed by Dr. Valencia from Neurology, who did bump up his steroids. Patient did get some IV steroids at [facility]. Patient underwent a cardiac catheterization this morning by Dr. Abdalla and had intervention to the LAD. Post procedure, patient is lying in bed, comfortable. His is at the bedside. REVIEW OF SYSTEMS: CONSTITUTIONAL: Tired. HEENT: None. RESPIRATORY: Occasionally short of breath. CARDIOVASCULAR: As above. GASTROINTESTINAL: None. GENITOURINARY: None. MUSCULOSKELETAL: None. DERMATOLOGIC: None. HEMATOLOGIC: None. LYMPHATICS: None. PSYCHIATRY: Forgetful. NEUROLOGICAL: None. PAST MEDICAL HISTORY: 1. COPD. 2. Alzheimer's dementia. 3. Diabetes mellitus, type 2. 4. Hypertension. 5. Multiple sclerosis. 6. Optic neuritis. 7. Sleep apnea. 8. Peripheral neuropathy. 9. Hard of hearing. 10. Coronary artery disease. PAST SURGICAL HISTORY: 1. Cholecystectomy. 2. Cardiac catheterization with patent stent in 2012. 3. Cataract lens implants bilaterally. 4. Left hand trigger finger. SOCIAL HISTORY: . Smoked from 1965 to 2010. No alcohol. FAMILY HISTORY: Myocardial infarction, stroke. ALLERGIES: 1. ATIVAN. 2. LISINOPRIL. 3. ATENOLOL. HOME MEDICATIONS: 1. Ultram 50 mg q.6 p.r.n. 2. Metrocream topically b.i.d. p.r.n. 3. Metformin 1000 mg p.o. b.i.d. 4. Lamictal 50 mg p.o. b.i.d. 5. Klonopin 0.5 mg p.o. daily at 5 p.m. 6. Spiriva 2 puffs b.i.d. 7. Onglyza 5 mg p.o. daily. 8. Mysoline 100 mg p.o. b.i.d. 9. Nitrostat 0.4 sublingually q.5 p.r.n. 10. Lopressor 25 mg p.o. after meals b.i.d. 11. Namenda 10 mg p.o. b.i.d. 12. Melatonin 9 mg p.o. at bedtime. 13. Imdur ER 120 mg p.o. daily. 14. Hydrocortisone 1% topical b.i.d. p.r.n. 15. Lexapro 20 mg p.o. daily. 16. EpiPen 0.3 mg once p.r.n. 17. Aricept 20 mg p.o. b.i.d. 18. Aggrenox 1 tablet p.o. b.i.d. 19. Vitamin B12 1000 mcg p.o. daily. 20. Vitamin D3 2000 units p.o. daily. 21. Symbicort 160/4.5 two puffs daily. 22. Lipitor 80 mg p.o. daily. 23. Ventolin HFA 1 to 2 puffs q.4 p.r.n. ALLERGIES: 1. TYLENOL. 2. LISINOPRIL. 3. ATIVAN. On examination, temperature 96.9, pulse 56, respiration 16, blood pressure 163/82, pulse ox 99% on 2 L. Before that, blood pressure was 126/73. GENERAL APPEARANCE: Average build. Lying in bed comfortable. EYES: Pupils equal. Conjunctivae normal. HEENT: Oral cavity normal. NECK: JVD not raised. Mass not palpable. RESPIRATORY: Effort normal. LUNGS: Slightly decreased breath sounds. CARDIOVASCULAR: First and second sounds normal. No edema. ABDOMEN: Soft, nontender. Liver and spleen not palpable. LYMPHATIC: No lymph node palpable in neck or axillae. PSYCHIATRY: Awake. Answering simple questions. Mood and affect normal. NEUROLOGICAL: Pupils equal. Cranial nerves grossly intact. Power and sensation grossly intact. INVESTIGATIONS: White count 13.8, hemoglobin 13.2. Potassium 4.2. BUN 28, creatinine 0.82. ASSESSMENT: 1. Unstable angina in a patient with known coronary artery disease, status post stent to the left anterior descending coronary artery. 2. Chronic obstructive pulmonary disease in an ex-smoker. 3. Alzheimer's dementia, late-onset type ( ) psychosis. 4. Diabetes mellitus, type 2, on oral hypoglycemic. 5. Essential hypertension. 6. Multiple sclerosis causing peripheral neuropathy. 7. Depression not otherwise specified. PLAN: Continue current medication and treatment plan. Will check with Dr. Valencia about dose of steroids patient can take and go home. Care was discussed in detail with the patient. Questions were answered.
[2016-08-22 16:48] LABS: Glucose,Whole Blood 166 mg/dL (75-99)
[2016-08-22] MEDS: clonazePAM 0.5 MG TAB PO SCH (18:34)
[2016-08-22] MEDS: ESCITALOPRAM 20 MG TAB PO SCH (18:35)
[2016-08-22] MEDS: LINAGLIPTIN 5 MG TABLET PO SCH (18:35)
[2016-08-22] MEDS: ISOSORBIDE MONONITRATE ER 60 MG TAB.ER.24H PO SCH (18:35)
[2016-08-22] MEDS: CYANOCOBALAMIN 500 MCG TAB PO SCH (18:38)
[2016-08-22 20:43] LABS: Glucose,Whole Blood 152 mg/dL (75-99)
[2016-08-22] MEDS: MELATONIN 3 MG TABLET PO SCH (21:23)
[2016-08-23] MEDS: ATORVASTATIN 80 MG TAB PO SCH (03:05)
[2016-08-23] MEDS: CHOLECALCIFEROL 1,000 UNIT TAB PO SCH (03:05)
[2016-08-23] MEDS: DONEPEZIL 10 MG TAB PO SCH ×2 (03:06→17:59)
[2016-08-23] MEDS: PRIMIDONE 50 MG TAB PO SCH ×2 (03:06→18:02)
[2016-08-23] MEDS: METOPROLOL TARTRATE 25 MG TAB PO SCH ×2 (03:06→18:02)
[2016-08-23] MEDS: MEMANTINE 10 MG TAB PO SCH ×2 (03:06→18:01)
[2016-08-23] MEDS: DIPYRIDAMOLE-ASPIRIN 200-25 MG 1 EACH CPMP.12HR PO SCH ×2 (04:56→17:59)
[2016-08-23 06:06] LABS: Glucose,Whole Blood 135 mg/dL (75-99)
[2016-08-23] MEDS: INSULIN LISPRO (humaLOG) 300 UNIT/3 ML VIAL SQ SCH ×4 (06:33→21:08)
[2016-08-23 07:03] LABS: Basophils % (A) 0 %; CH 31.3; CHCM 32.2; Eosinophils # (A) 0.2 k/uL (0-0.7); Eosinophils % (A) 1 %; HCT 40.9 % (39.0-53.0); HDW 2.06; HGB 13.2 gm/dL (13.0-17.5); Luc # (Auto) 0.17; Luc % (Auto) 1; Lymphocytes # (A) 1.9 k/uL (1.0-4.8); Lymphocytes % (A) 16 %; MCH 31.4 pg (25.0-35.0); MCHC 32.3 g/dL (31.0-37.0); MCV 97.5 fL (80.0-100.0); Mean Platelet Volume 7.6; Monocytes # (A) 0.9 k/uL (0-1.0); Monocytes % (A) 7 %; Neutrophils % (A) 75 %; RDW 13.7 % (11.5-15.5); WBC (Perox) 12.81
[2016-08-23 07:10] LABS: Anion Gap 5 mmol/L; Blood Urea Nitrogen 18 mg/dL (9-20); Calcium 8.7 mg/dL (8.4-10.2); Carbon Dioxide 31 mmol/L (22-30); Chloride 101 mmol/L (98-107); Glucose 124 mg/dL (74-99); Non-African American GFR(MDRD) >60 (>60 ml/min/1.73 sqM); Potassium 4.1 mmol/L (3.5-5.1); Sodium 137 mmol/L (137-145)
[2016-08-23] MEDS ORDERED: diphenhydrAMINE 50 MG/ML 1 ML VIAL IVP PRN (07:52)
[2016-08-23] MEDS ORDERED: FAMOTIDINE 20 MG/2 ML VIAL IV SCH (09:00)
[2016-08-23] MEDS: TIOTROPIUM 18 MCG/PUFF INHALER INHALATION SCH (09:04)
[2016-08-23] MEDS: SYMBICORT 160-4.5 MCG INHALER INHALATION SCH (09:05)
[2016-08-23] MEDS: CLOPIDOGREL 75 MG TAB PO SCH (09:54)
[2016-08-23] MEDS: ASPIRIN 325 MG TAB PO SCH (09:54)
[2016-08-23] MEDS: lamoTRIgine 25 MG TAB PO SCH ×2 (09:55→21:07)
[2016-08-23] MEDS: SODIUM CHLORIDE 0.9% 1,000 ML IV SCH (09:55)
[2016-08-23 11:37] LABS: Glucose,Whole Blood 338 mg/dL (75-99)
--- NOTE | 2016-08-23 12:44 | P.PN ---
Progress Note - Text Patient developed a rash post cath. He was not given Plavix Possibilities include IV dye versus Angiomax I would recommend that he stays at least overnight and if his rash is better he should be old go home tomorrow
[2016-08-23] MEDS: diphenhydrAMINE ELIXIR 25 MG/10 ML CUP PO SCH ×3 (13:42→22:18)
--- NOTE | 2016-08-23 14:51 | P.PN ---
Subjective Principal diagnosis: LAD stent This is a pleasant 71-year-old gentleman with known history of coronary artery disease who was brought here from [facility] and underwent angioplasty and stenting of the LAD by Dr. Boykin. He developed a papular rash post procedure. The rash is mainly located on bilateral arms chest abdomen and back and neck area. He has no rash on his legs. Patient did not receive Plavix until this morning. It is likely that the rash is from IVP dye or Angiomax. Patient has had IVP dye several times in the past without experiencing any rash. He was quite sleepy at the time of my examination this morning but in the afternoon had woke up significantly. Blood cell count 12, hemoglobin 13, potassium 4.1, BUN 18, creatinine 0.7. Dr. Nava's recommendation is that we continue to monitor the patient for another 24 hours prior to discharge, if stable in the morning he may be able to be discharged home. Objective - Vital Signs Vital signs: Vital Signs Temp 96.8 F L 08/23/16 09:40 Pulse 61 08/23/16 09:40 Resp 18 08/23/16 09:40 BP 112/58 08/23/16 09:40 Pulse Ox 92 L 08/23/16 09:40 Intake & Output 08/22/16 08/23/16 08/23/16 18:59 06:59 18:59 Intake Total 735 118 Output Total 850 Balance -115 118 Weight 77.6 kg Intake: IV 495 Sodium Chloride 0.9% 1, 300 000 ml @ 100 mls/hr IV . Q10H NAFISA Rx#:[id number] Oral 240 118 Output: Urine 850 Other: Voiding Method Toilet # Voids 0 2 1 # Bowel Movements 1 - Exam PHYSICAL EXAMINATION: HEENT: Head is atraumatic, normocephalic. Pupils equal, round. Neck is supple. There is no elevated jugular venous pressure. HEART EXAMINATION: Heart S1, S2 normal. No murmur or gallop heard. CHEST EXAMINATION: Lungs are clear to auscultation and precussion. No chest wall tenderness is noted on palpation or with deep breathing. ABDOMEN: Soft, nontender. Bowel sounds are heard. No organomegaly noted. EXTREMITIES: 2+ peripheral pulses with no evidence of peripheral edema and no calf tenderness noted. NEUROLOGIC patient is awake, alert SKIN significant papular rash noted on patient's bilateral arms, chest, neck areas. . - Labs CBC & Chem 7: 08/23/16 06:36 08/23/16 06:36 Labs: Abnormal Lab Results - Last 24 Hours (Table) 08/22/16 08/22/16 08/23/16 Range/Units 16:41 20:41 06:05 WBC (3.8-10.6) k/uL RBC (4.30-5.90) m/uL Neutrophils # (1.3-7.7) k/uL Carbon Dioxide (22-30) mmol/L Glucose (74-99) mg/dL POC Glucose (mg/dL) 166 H 152 H 135 H (75-99) mg/dL 08/23/16 08/23/16 08/23/16 Range/Units 06:36 06:36 11:34 WBC 12.0 H (3.8-10.6) k/uL RBC 4.20 L (4.30-5.90) m/uL Neutrophils # 9.0 H (1.3-7.7) k/uL Carbon Dioxide 31 H (22-30) mmol/L Glucose 124 H (74-99) mg/dL POC Glucose (mg/dL) 338 H (75-99) mg/dL Assessment and Plan (1) Presence of stent in LAD coronary artery Status: Acute (2) Rash Status: Acute (3) CAD (coronary artery disease), [place] coronary artery Status: Acute (4) Dyslipidemia Status: Acute (5) Multiple sclerosis Status: Acute Plan: Cardiology's perspective, we will recommend to continue current medications the patient is on. He has been initiated on steroids and Benadryl. It is very likely that the patient's reaction is either to the IVP dye or Angiomax. Cardiology's recommendation is to continue to monitor the patient for 24 hours, if stable discharge home in the morning. DNP note has been reviewed, I agree with a documented findings and plan of care. Patient was seen and examined.
[2016-08-23 16:52] LABS: Glucose,Whole Blood 147 mg/dL (75-99)
[2016-08-23] MEDS: CYANOCOBALAMIN 500 MCG TAB PO SCH (17:58)
[2016-08-23] MEDS: ESCITALOPRAM 20 MG TAB PO SCH (18:00)
[2016-08-23] MEDS: ISOSORBIDE MONONITRATE ER 60 MG TAB.ER.24H PO SCH (18:00)
[2016-08-23] MEDS: LINAGLIPTIN 5 MG TABLET PO SCH (18:01)
[2016-08-23] MEDS: clonazePAM 0.5 MG TAB PO SCH (18:08)
[2016-08-23 20:23] LABS: Glucose,Whole Blood 165 mg/dL (75-99)
[2016-08-23] MEDS: FAMOTIDINE 20 MG TAB PO SCH (21:07)
[2016-08-23] MEDS: MELATONIN 3 MG TABLET PO SCH (22:21)
--- NOTE | 2016-08-23 22:29 | PN ---
DATE OF SERVICE: 08/23/2016. PRESENTING COMPLAINT: Chest pain. INTERVAL HISTORY: This patient presented with unstable angina and is now status post heart catheterization with stent placement to the left anterior descending coronary artery. Patient is lying in bed very comfortably, however, patient did develop a rash early this morning. Patient received Benadryl and the rash seems to be improved. His is at the bedside. Patient is lying comfortably in bed sleeping. Review of systems done for constitutional, cardiovascular, GI, and pulmonary with relevant findings as above. CURRENT MEDICATIONS: 1. Aspirin 325 mg p.o. daily. 2. Lipitor 80 mg p.o. daily. 3. Symbicort 160/4.5 mcg 2 puffs inhalation daily. 4. Klonopin 0.5 mg p.o. daily. 5. Plavix 75 mg p.o. daily. 6. Aricept 20 mg p.o. b.i.d. 7. Lexapro 20 mg p.o. daily. 8. Imdur 120 mg p.o. daily. 9. Tradjenta 5 mg p.o. daily. 10. Namenda 10 mg p.o. daily. 11. Metoprolol 25 mg p.o. b.i.d. PHYSICAL EXAMINATION: VITAL SIGNS: Temperature 96.8, pulse 61, respiratory rate 18, blood pressure 112/58, oxygen saturation 92% on room air. GENERAL APPEARANCE: Patient is lying in bed, comfortable -appearing, able to notice red welted rash over arms, chest wall, neck, over most of the patient's body. EYES: Pupils equal. Conjunctivae normal. NECK: JVD not raised. Mass not palpable. LUNGS: Breath sounds diminished bilaterally. RESPIRATORY: Effort normal. CARDIOVASCULAR: First and second sounds noted. No edema. ABDOMEN: Soft, nontender. Liver and spleen not palpable. PSYCHIATRY: Alert and oriented x2 to 3. Mood and affect are normal. INVESTIGATIONS: White blood cell count 12.0, hemoglobin 13.2, blood glucose 124. ASSESSMENT: 1. Unstable angina in a patient with known coronary artery disease, status post stent to the left anterior descending coronary artery. 2. Chronic obstructive pulmonary disease in an ex-smoker. 3. Alzheimer's dementia late onset type. 4. Diabetes mellitus, type II, on oral hypoglycemics. 5. Essential hypertension. 6. Multiple sclerosis causing peripheral neuropathy. 7. Depression not otherwise specified. 8. Skin rash likely possibilities include IV dye versus Angiomax. Patient received Benadryl for the rash. PLAN: Since the development of this rash on this patient's skin post catheterization, we will plan to keep the patient overnight another night to insure patient well-being. We will otherwise continue with current medication and treatment plan. Questions were answered at the bedside with Dr. Hodge and patient's and nurse practitioner, Sneha Kang. Patient was seen and examined by nurse practitioner, Sneha Kang, and all elements of the case discussed with the attending Dr. Hodge. I performed a history and physical examination of this patient and discussed the same with the dictator. I agree with the dictator's note. Any additional findings/opinions, etc. will be noted.
[2016-08-24] MEDS: ATORVASTATIN 80 MG TAB PO SCH (03:23)
[2016-08-24] MEDS: CHOLECALCIFEROL 1,000 UNIT TAB PO SCH (03:23)
[2016-08-24] MEDS: DONEPEZIL 10 MG TAB PO SCH (03:23)
[2016-08-24] MEDS: MEMANTINE 10 MG TAB PO SCH (03:24)
[2016-08-24] MEDS: PRIMIDONE 50 MG TAB PO SCH (03:24)
[2016-08-24] MEDS: METOPROLOL TARTRATE 25 MG TAB PO SCH (03:24)
[2016-08-24] MEDS: DIPYRIDAMOLE-ASPIRIN 200-25 MG 1 EACH CPMP.12HR PO SCH (03:37)
[2016-08-24 04:50] VITALS: RESP 18
[2016-08-24 06:22] LABS: Glucose,Whole Blood 270 mg/dL (75-99)
[2016-08-24] MEDS: INSULIN LISPRO (humaLOG) 300 UNIT/3 ML VIAL SQ SCH ×2 (06:36→12:38)
[2016-08-24] MEDS: SODIUM CHLORIDE 0.9% 1,000 ML IV SCH (06:36)
[2016-08-24] MEDS: SYMBICORT 160-4.5 MCG INHALER INHALATION SCH (08:06)
[2016-08-24] MEDS: TIOTROPIUM 18 MCG/PUFF INHALER INHALATION SCH (08:06)
[2016-08-24] MEDS: ASPIRIN 325 MG TAB PO SCH (08:50)
[2016-08-24] MEDS: diphenhydrAMINE ELIXIR 25 MG/10 ML CUP PO SCH (08:51)
[2016-08-24] MEDS: CLOPIDOGREL 75 MG TAB PO SCH (08:51)
[2016-08-24] MEDS: lamoTRIgine 25 MG TAB PO SCH (08:52)
[2016-08-24] MEDS: FAMOTIDINE 20 MG TAB PO SCH (08:52)
[2016-08-24 11:41] LABS: Glucose,Whole Blood 183 mg/dL (75-99)
[2016-08-24] MEDS ORDERED: diphenhydrAMINE 50 MG/ML 1 ML VIAL IVP STA (12:42)
--- NOTE | 2016-08-24 13:10 | P.PN ---
Subjective Principal diagnosis: LAD stent This is a pleasant 71-year-old gentleman with known history of coronary artery disease who was brought here from [facility] and underwent angioplasty and stenting of the LAD by Dr. Boykin. He developed a papular rash post procedure. The rash is mainly located on bilateral arms chest abdomen and back and neck area. He has no rash on his legs. Patient did not receive Plavix until this morning. It is likely that the rash is from IVP dye or Angiomax. Patient has had IVP dye several times in the past without experiencing any rash. He was quite sleepy at the time of my examination this morning but in the afternoon had woke up significantly. 08/24/2016 The patient was seen and examined this morning, he is much more alert today. Rash is improving significantly. Hemodynamically stable. Patient may be able to be discharged from cardiology's perspective, a follow-up appointment will be made with Dr. Boykin in the office early next week. Objective - Vital Signs Vital signs: Vital Signs Temp 97.8 F 08/24/16 11:19 Pulse 61 08/24/16 11:19 Resp 18 08/24/16 11:19 BP 134/67 08/24/16 11:19 Pulse Ox 97 08/24/16 11:19 Intake & Output 08/23/16 08/24/16 08/24/16 18:59 06:59 18:59 Intake Total 788 0 Output Total 200 Balance 588 0 Weight 79.2 kg Intake: IV 550 Sodium Chloride 0.9% 1, 550 000 ml @ 50 mls/hr IV . Q20H [facility] Rx#:[id number] Oral 238 0 Output: Urine 200 Other: Voiding Method Toilet # Voids 1 1 1 # Bowel Movements 1 - Exam PHYSICAL EXAMINATION: HEENT: Head is atraumatic, normocephalic. Pupils equal, round. Neck is supple. There is no elevated jugular venous pressure. HEART EXAMINATION: Heart S1, S2 normal. No murmur or gallop heard. CHEST EXAMINATION: Lungs are clear to auscultation and precussion. No chest wall tenderness is noted on palpation or with deep breathing. ABDOMEN: Soft, nontender. Bowel sounds are heard. No organomegaly noted. EXTREMITIES: 2+ peripheral pulses with no evidence of peripheral edema and no calf tenderness noted. NEUROLOGIC patient is awake, alert SKIN significant papular rash noted on patient's bilateral arms, chest, neck areas. Much improved today. . - Labs CBC & Chem 7: 08/23/16 06:36 08/23/16 06:36 Labs: Abnormal Lab Results - Last 24 Hours (Table) 08/23/16 08/23/16 08/24/16 Range/Units 16:32 20:09 06:17 POC Glucose (mg/dL) 147 H 165 H 270 H (75-99) mg/dL 08/24/16 Range/Units 11:32 POC Glucose (mg/dL) 183 H (75-99) mg/dL Assessment and Plan (1) Presence of stent in LAD coronary artery Status: Acute (2) Rash Status: Acute (3) CAD (coronary artery disease), [place] coronary artery Status: Acute (4) Dyslipidemia Status: Acute (5) Multiple sclerosis Status: Acute Plan: From cardiology's perspective he may be able to be discharged home today. A follow-up appointment will be made with Dr. Boykin post discharge. DNP note has been reviewed, I agree with a documented findings and plan of care. Patient was seen and examined.
[2016-08-24] MEDS ORDERED: diphenhydrAMINE 25 MG CAP PO SCH (16:00)
[2016-08-24 16:55] VITALS: BP 156/76; PULSE 65; TEMP 96.9
--- NOTE | 2016-08-24 20:18 | PN ---
DATE OF SERVICE: 08/23/2016 ATTENDING NOTE: This patient was seen and examined by me on 08/23/16. I reviewed the note of my nurse practitioner Ms. Kang. I discussed it with her and agree with it. Patient is status post stent to the LAD. Patient today developed hives; unclear; given Benadryl, with some improvement. Patient is sleepy after the same. Was able to communicate. His is present. On examination, lungs have slightly decreased breath sounds. CARDIOVASCULAR: First and second sounds normal. DERMATOLOGICAL: Some hives are present on the arms and upper chest. ASSESSMENT: 1. Acute allergic reaction, hives; cause unclear. Could be a delayed reaction to dye, but there is no way to tell exactly what it is. Patient does have chronic skin condition. 2. Coronary artery disease with stent to the left anterior descending coronary artery. PLAN: Patient was put on Pepcid, Benadryl, steroids. Also Dr. Valencia's office was contacted. Patient is to continue his current dose of steroids for his MS; nothing new. Care was discussed at length with his . She was assured that this is the treatment for this, and oftentimes the exact cause cannot be pinpointed. Care was also discussed with Dr. Baker from Cardiology.
--- NOTE | 2016-08-25 06:29 | DS ---
DATE OF ADMISSION: 08/21/2016 DATE OF DISCHARGE: 08/24/2016 FINAL DIAGNOSIS(ES): 1. Unstable angina, present on admission. 2. Chronic obstructive pulmonary disease in an ex-smoker. 3. Alzheimer's dementia, late onset type II. 4. Type 2 diabetes mellitus, on oral hypoglycemic. 5. Essential hypertension. 6. Multiple sclerosis causing peripheral neuropathy. 7. Depression not otherwise specified. 8. Acute allergic reaction manifested as hives, exact cause unknown. Consultation with Dr. Abdalla and Dr. Baker from cardiology. HOSPITAL COURSE: This is a patient known to Dr. Abdalla with unstable angina, did undergo stent to the LAD. Patient subsequently did develop rash, cause unclear. Was given Benadryl with some improvement. Today I spoke at length with the who said that the course would be to give Benadryl, Pepcid and prednisone also spoke to Dr. Valencia's office and confirmed the patient should be on the current dose of prednisone. Regarding patient's mentation, I did tell the that is expected from MS and Dr. Valencia is already closely following. No other medications at this point, will actually help. Patient is tolerating his diet. No chest pain, chest pain free. On examination. Hives getting better. LUNGS: Slightly decreased breath sounds. CARDIOVASCULAR: First and second sounds normal. DISCHARGE MEDICATIONS: 1. Vitamin D3 2000 p.o. daily. 2. Aricept 20 mg b.i.d. 3. Melatonin 9 mg q.h.s. 4. Namenda 10 mg b.i.d. 5. Lopressor 25 mg p.o. t.i.d. 6. Nitrostat 0.4 sublingual q.5 p.r.n. 7. Spiriva 2 puffs b.i.d. 8. Klonopin 0.5 mg daily. 9. Lamictal 50 mg p.o. daily. 10. Onglyza 5 mg p.o. daily. 11. EpiPen 0.3 p.r.n. 12. Metformin 1000 mg p.o. b.i.d. 13. Lipitor 80 mg p.o. daily. 14. Vitamin B12 1000 mcg p.o. daily. 15. Ultram 50 mg q.6 p.r.n. 16. Hydrocortisone cream topically b.i.d. p.r.n. 17. MetroCream 0.75% topical b.i.d. p.r.n. 18. Ventolin HFA 1 to 2 puffs q.4 p.r.n. 19. Symbicort 160/4.5, 2 puffs p.o. daily. 20. Lexapro 20 mg p.o. daily. 21. Imdur ER 20 mg p.o. daily. 22. Mysoline 100 mg p.o. b.i.d. 23. Aspirin 81 mg p.o. b.i.d. 24. Plavix 75 mg p.o. daily. 25. Pepcid 20 mg p.o. q.12 14 tablets. 26. Benadryl 25 mg q.4 doses and then p.r.n. until rashes disappears. Follow up with Dr. Darling in one week, follow-up with Dr. Abdalla on 08/28/2016. Dr. Valencia in 10 days. Cardiac catheterization instructions. Total time spent today is more than 35 minutes.
== END 2016-08-24 17:08 | disposition home or self-care (01) | DRG 247 ==
LOC: 6SEL 17:29
PROVIDERS: ADMIT Hospitalist; ATTEND Hospitalist
PROC: B211YZZ Fluoroscopy of Multiple Coronary Arteries using Other Contrast (ICD-10-PCS; 2016-08-22)
PROC: 02C03ZZ Extirpation of Matter from Coronary Artery, One Artery, Percutaneous Approach (ICD-10-PCS; principal; 2016-08-22 09:03)
PROC: 027034Z Dilation of Coronary Artery, One Artery with Drug-eluting Intraluminal Device, Percutaneous Approach (ICD-10-PCS; 2016-08-22 09:03)
DX: I25.110 Atherosclerotic heart disease of native coronary artery with unstable angina pectoris (principal); G35 Multiple sclerosis; G30.1 Alzheimer's disease with late onset; F02.80 Dementia in other diseases classified elsewhere, unspecified severity, without behavioral disturbance, psychotic disturbance, mood disturbance, and anxiety; G62.9 Polyneuropathy, unspecified; J44.9 Chronic obstructive pulmonary disease, unspecified; E11.9 Type 2 diabetes mellitus without complications; E78.5 Hyperlipidemia, unspecified; I10 Essential (primary) hypertension; F32.9 Major depressive disorder, single episode, unspecified; L50.0 Allergic urticaria; H91.90 Unspecified hearing loss, unspecified ear; G47.30 Sleep apnea, unspecified; Z96.1 Presence of intraocular lens; Z98.41 Cataract extraction status, right eye; Z98.42 Cataract extraction status, left eye; Z87.891 Personal history of nicotine dependence; Z79.84 Long term (current) use of oral hypoglycemic drugs; Z79.51 Long term (current) use of inhaled steroids; Z79.899 Other long term (current) drug therapy; Z82.49 Family history of ischemic heart disease and other diseases of the circulatory system
CPT/HCPCS: 80048; 83036; 85025; 93454; 94640

== ENCOUNTER → 2016-10-01 | Outpatient (CLI) | payer MEDICARE ==
--- NOTE | 2016-10-01 23:38 | MR ---
EXAMINATION TYPE: MR brain wo/w con DATE OF EXAM: 10/01/2016 COMPARISON: 07/07/2015 HISTORY: Dizziness, MS follow up, compare to previous study 07-07-15 TECHNIQUE: Multiplanar, multisequence images of the brain and brainstem is performed without and with IV contras t, utilizing 15 mL intravenous MultiHance . FINDINGS: There is enlargement of the ventricles. There is patchy increased signal in the white matter around t he lateral ventricles with foci that measure up to 1.5 cm. There is a 1.5 cm focus at the calderon-white matter junction of the left posterior frontal lobe. There are other foci of increased signal at the g ray-white matter junction of both cerebral hemispheres that measure up to 1 cm. There is no midline s hift. There is no sign of intracranial hemorrhage. There is some thinning of the corpus callosum. The re are small foci of increased signal within the corpus callosum on the T2 images. Contrast images sh ow no pathologic enhancement. There is a 7 mm irregular area of increased signal within the central p ons on the T2 images. IMPRESSION: Cerebral atrophy and normal pressure type hydrocephalus. Extensive white matter changes i n both cerebral hemispheres and involving the corpus callosum. This is consistent with demyelinating disease. I see no significant change compared to old exam.
== END ==
LOC: RADMRIMAIN 19:15
PROVIDERS: ATTEND Psychiatry & Neurology Neurology
DX: G31.9 Degenerative disease of nervous system, unspecified (principal); G91.2 (Idiopathic) normal pressure hydrocephalus; R90.89 Other abnormal findings on diagnostic imaging of central nervous system
CPT/HCPCS: 70553; A9577

== ENCOUNTER → 2017-05-16 | Outpatient (CLI) | payer MEDICARE ==
--- NOTE | 2017-05-16 22:46 | US ---
EXAMINATION TYPE: US abdomen complete DATE OF EXAM: 05/16/2017 COMPARISON: NONE CLINICAL HISTORY: 71-year-old male R74.8 ABN LIVER ENZYMES; gallbladder removed, Alzheimer's Disease TECHNIQUE: Multiple sonographic images of the abdomen are obtained. FINDINGS: Liver Length: 13.7 cm Gallbladder: surgically removed CBD: 0.3 cm Spleen: 10.5 cm Right Kidney: 9.1 x 5.3 x 5.6 cm Left Kidney: 9.1 x 4.6 x 5.5 cm Pancreas: Limited visualization. However, there appears to be a large caliber SMV. Liver: Flower Maker notes: small left lobe; (limited liver visualization as had to scan intercostally ) Gallbladder: surgically absent Evidence for sonographic Hammond's sign: No CBD: wnl Spleen: wnl Right Kidney: No hydronephrosis. A couple small cortical cysts are present, largest in the upper pole measuring 1.4 cm. There is also a 4 mm echogenic focus in the midpole that could represent a tiny no nobstructive calculus. Left Kidney: No hydronephrosis. A couple cortical cysts are present, largest at the mid pole measuri ng 1.5 cm. Upper IVC: wnl Abd Aorta: size is wnl; mild intimal wall thickening distally IMPRESSION: 1. Status post cholecystectomy. No biliary ductal dilatation. 2. Limited intercostal views of the liver. 3. Large SMV. Etiology uncertain. Some differential possibilities include portal venous hypertension and arterial portal fistula.
== END | disposition home or self-care (01) ==
LOC: RADUSWWP 15:57
PROVIDERS: ATTEND Family Medicine
DX: R74.8 Abnormal levels of other serum enzymes (principal); Z90.49 Acquired absence of other specified parts of digestive tract
CPT/HCPCS: 76700

== ENCOUNTER → 2017-07-15 | Outpatient (CLI) | payer MEDICARE ==
--- NOTE | 2017-07-16 05:45 | CT ---
EXAMINATION TYPE: CT sinus wo con DATE OF EXAM: 07/15/2017 COMPARISON: CT brain April 13, 2016. MRI brain October 01, 2016. HISTORY: Chronic sinusitis and nasal drainage per order. Runny nose for 1 year with some headaches an d dizziness per patient CT DLP: 618.1 mGycm. Automated Exposure Control for Dose Reduction was Utilized. TECHNIQUE: CT scan of the sinuses is performed without contrast, axial images are obtained, coronal r eformatted images are also reviewed. FINDINGS: The paranasal sinuses including the frontal, ethmoid, sphenoid, and maxillary sinuses bila terally are well-aerated without abnormal opacification. The ostiomeatal complex is patent bilateral ly on the coronal images. Nasal septum is demonstrated deviated to right of midline inferiorly. Visualized portion of mastoid air cells show no abnormal opacification. The globes are intact bilate rally. Visualized portion of brain parenchyma redemonstrates diffuse age related cerebral atrophy an d chronic small vessel ischemic change. IMPRESSION: The sinuses are clear and the ostiomeatal complex is patent bilaterally.
== END | disposition home or self-care (01) ==
LOC: RADCTMAIN 19:17
PROVIDERS: ATTEND Otolaryngology
DX: R09.81 Nasal congestion (principal)
CPT/HCPCS: 70486

== ENCOUNTER → 2019-04-09 | Day surgery (SDC) | payer MEDICARE ==
[2019-04-07 11:50] VITALS: BMI 27.4
[2019-04-09 07:11] VITALS: TEMP 982
[2019-04-09 07:25] VITALS: BP 137/84; PULSE 67; RESP 18
[2019-04-09 07:26] LABS: Glucose,Whole Blood 113 mg/dL (75-99)
== END ==
LOC: ORPAIN 06:32
PROVIDERS: ATTEND Anesthesiology
DX: G91.9 Hydrocephalus, unspecified (principal); Z53.09 Procedure and treatment not carried out because of other contraindication; G31.84 Mild cognitive impairment of uncertain or unknown etiology

== ENCOUNTER 2019-04-16 09:43 | Day surgery (SDC) | payer MEDICARE ==
[2019-04-16 10:26] VITALS: TEMP 97.7
[2019-04-16] MEDS ORDERED: LIDOCAINE 1% (10MG/ML) FOR IV START INTRADERMA ONE (10:29)
--- NOTE | 2019-04-16 11:52 | P.PCN ---
Date of Procedure: 04/16/19 Procedure(s) Performed: Preoperative diagnosis: Normal pressure hydrocephalus, multiple sclerosis with worsening cognitive decline Post operative diagnoses: As above Anesthesia local infiltration with lidocaine 1% 2 mL. Condition: stable Complication: none. Description of the procedure procedure risk and benefits discussed with the patient and family, consent signed. Patient was taken to the procedure area placed in left lateral position. Local infiltration of the skin and subcutaneous tissue with lidocaine 1%. A 20-gauge Quincke-type needle advanced slowly at L4- 5 interlaminar space.opening pressure was measured at 15 cm of water. CSF was collected. A total of 12 ML of clear cerebrospinal fluid collected in 4 tubes, then closing pressure was measured at 8 cm of water. Then, the needle was removed and a Band-Aid applied and patient tolerated the procedure well without any complications. Follow-up: Will be with his neurologist and primary care physician
[2019-04-16] MEDS ORDERED: IV FLUID CONTINUATION 850 ML IV ONE (12:03)
[2019-04-16 12:18] LABS: Glucose,Whole Blood 110 mg/dL (75-99)
[2019-04-16 12:42] VITALS: PULSE 59
[2019-04-16 12:57] LABS: Glucose,CSF 82 mg/dL (40-70); Total Protein,CSF 71 mg/dL (12-60)
[2019-04-16 13:47] VITALS: BP 149/75; RESP 18
[2019-04-16 13:55] LABS: Appearance,CSF Clear; CSF Tube Number 3; CSF Tube Volume 2.8; Nucleated Cells, CSF 0 u/L (0-5); Red Blood Cell,CSF 1 u/L (0-10)
== END 2019-04-16 14:18 | disposition home or self-care (01) ==
LOC: ORPAIN 09:43
PROVIDERS: ATTEND Anesthesiology
DX: G91.2 (Idiopathic) normal pressure hydrocephalus (principal); G35 Multiple sclerosis; R41.89 Other symptoms and signs involving cognitive functions and awareness; Z91.041 Radiographic dye allergy status; Z88.6 Allergy status to analgesic agent; Z88.8 Allergy status to other drugs, medicaments and biological substances
CPT/HCPCS: 62270; 82945; 83916; 84157; 88108; 89050